=== PATIENT | male | born 1925 | race Caucasian/White ===

== ENCOUNTER 2016-08-18 14:38 | Emergency (ER) | payer MEDICARE, OTHER ==
--- NOTE | 2016-08-18 14:51 | ER Document Report ---
ED Medical Screen (RME) - General Stated Complaint: STITCH REMOVAL Mode of Arrival: Ambulatory Information source: Patient Notes: Patient here for suture removal. Patient states that he was told that they would fall out but he states that they're still present. I have greeted and performed a rapid initial assessment of this patient. A comprehensive ED assessment and evaluation of the patient, analysis of test results and completion of the medical decision making process will be conducted by additional ED providers. TRAVEL OUTSIDE OF THE [place] IN LAST 30 DAYS: No - Related Data Allergies/Adverse Reactions: No Known Allergies Allergy (Verified 08/08/16 14:54) Past Medical History - Past Medical History Cardiac Medical History: Reports: Hx Coronary Artery Disease - HIGH CHOL, Hx Hypertension Denies: Hx Heart Attack Pulmonary Medical History: Denies: Hx Asthma, Hx Bronchitis, Hx COPD, Hx Pneumonia Neurological Medical History: Denies: Hx Cerebrovascular Accident, Hx Seizures Renal/ Medical History: Reports: Hx Kidney Stones Musculoskeltal Medical History: Reports Hx Arthritis - HIP/KNEE PAIN - Immunizations Hx Diphtheria, Pertussis, Tetanus Vaccination: Yes Physical Exam - Vital signs Vitals: Temp Pulse Resp BP Pulse Ox 97.4 F 92 18 173/78 H 97 08/18/16 14:44 08/18/16 14:44 08/18/16 14:44 08/18/16 14:44 08/18/16 14:44 - Skin Notes: Sutures to left brow Course - Vital Signs Vital signs: Temp Pulse Resp BP Pulse Ox 97.4 F 92 18 173/78 H 97 08/18/16 14:44 08/18/16 14:44 08/18/16 14:44 08/18/16 14:44 08/18/16 14:44
--- NOTE | 2016-08-18 16:26 | ER Document Report ---
ED Suture/Wound Recheck - General Chief Complaint: Neck and Upper Back Pain Stated Complaint: STITCH REMOVAL Time seen by provider: 16:21 Mode of Arrival: Ambulatory Notes: 89-year-old male presents to ED for suture removal above his left eye. Patient states he was told they were followed on her own but it is been more than 5 days and there are still in. TRAVEL OUTSIDE OF THE [place] IN LAST 30 DAYS: No - HPI Previous ED treatment: Laceration repair Quality of pain: No pain Severity: None Pain Level: Denies Symptoms since procedure: No complaints Exacerbated by: Denies Relieved by: Denies - Related Data Allergies/Adverse Reactions: No Known Allergies Allergy (Verified 08/18/16 14:53) Past Medical History - General Information source: Patient - Social History Smoking Status: Never Smoker Chew tobacco use (# tins/day): No Frequency of alcohol use: None Drug Abuse: None Lives with: Family Family History: None. denies: Arthritis, CAD, COPD, CVA, DM, Hyperlipidemia, Hypertension, Malignancy, Thyroid Disfunction Patient has suicidal ideation: No Patient has homicidal ideation: No - Past Medical History Cardiac Medical History: Reports: Hx Coronary Artery Disease, Hx Hypercholesterolemia, Hx Hypertension Pulmonary Medical History: Reports: None EENT Medical History: Reports: None Neurological Medical History: Reports: None Endocrine Medical History: Reports: None Renal/ Medical History: Reports: Hx Kidney Stones Malignancy Medical History: Reports None GI Medical History: Reports: None Musculoskeltal Medical History: Reports Hx Arthritis - HIP/KNEE PAIN all over Skin Medical History: Reports None Psychiatric Medical History: Reports: None Traumatic Medical History: Reports: None Infectious Medical History: Reports: None Past Surgical History: Reports: Hx Cholecystectomy, Other - eye right - Immunizations Hx Diphtheria, Pertussis, Tetanus Vaccination: Yes Review of Systems - Review of Systems Constitutional: No symptoms reported EENT: No symptoms reported Cardiovascular: No symptoms reported Respiratory: No symptoms reported Gastrointestinal: No symptoms reported Genitourinary: No symptoms reported Male Genitourinary: No symptoms reported Musculoskeletal: No symptoms reported Skin: Other - Ecchymosis to the left eye sutures above the left eye Hematologic/Lymphatic: No symptoms reported Neurological/Psychological: No symptoms reported -: Yes All other systems reviewed and negative Physical Exam - Vital signs Vitals: Temp Pulse Resp BP Pulse Ox 97.4 F 92 18 173/78 H 97 08/18/16 14:44 08/18/16 14:44 08/18/16 14:44 08/18/16 14:44 08/18/16 14:44 Interpretation: Normal - General General appearance: Appears well, Alert - HEENT Head: Ecchymosis - Around left eye, Other - Sutures intact above left eye laceration well approximated healing well Eyes: Normal Pupils: PERRL Ears: Normal External canal: Normal Tympanic membrane: Normal Sinus: Normal Nasal: Normal Mouth/Lips: Normal Mucous membranes: Normal Pharynx: Normal Neck: Normal - Respiratory Respiratory status: No respiratory distress Chest status: Nontender Breath sounds: Normal Chest palpation: Normal - Cardiovascular Rhythm: Regular Heart sounds: Normal auscultation Murmur: No - Abdominal Inspection: Normal Distension: No distension Bowel sounds: Normal Tenderness: Nontender Organomegaly: No organomegaly - Back Back: Normal, Nontender - Extremities General upper extremity: Normal inspection, Nontender, Normal color, Normal ROM , Normal temperature General lower extremity: Normal inspection, Nontender, Normal color, Normal ROM , Normal temperature, Normal weight bearing. No: Jayleen's sign - Neurological Neuro grossly intact: Yes Cognition: Normal Orientation: AAOx4 [place] Coma Scale Eye Opening: Spontaneous [place] Coma Scale Verbal: Oriented Geo Coma Scale Motor: Obeys Commands Geo Coma Scale Total: 15 Speech: Normal Motor strength normal: LUE, RUE, LLE, RLE Sensory: Normal - Psychological Associated symptoms: Normal affect, Normal mood - Skin Skin Temperature: Warm Skin Moisture: Dry Skin Color: Normal Course - Re-evaluation Re-evalutation: 08/18/16 16:30 Sutures removed above left eye patient tolerated well will discharge home to follow-up with his primary doctor. - Vital Signs Vital signs: Temp Pulse Resp BP Pulse Ox 97.7 F 89 16 145/85 H 96 08/18/16 16:35 08/18/16 16:35 08/18/16 16:35 08/18/16 16:35 08/18/16 16:35 Discharge - Discharge Clinical Impression: Visit for suture removal Condition: Stable Disposition: HOME, SELF-CARE Instructions: Suture Removal Additional Instructions: SOAP CLEANSING: Gently wash the wound daily using a mild soap (like Ivory, Phisoderm, Neutrogena). Use warm water, rubbing gently until all debris, ooze, and crusting have been washed from the wound. Allow to dry briefly (about 10 minutes) after cleaning. Repeat this cleansing at least three times a day for the first two days and then once or twice a day. ANTIBIOTIC OINTMENT PROTECTION: Your wounds are such that dressing them is not practical or optional. After cleansing, you should apply a thin coating of antibiotic ointment ( Bacitracin, not Neosporin) to the wounds at least three times daily. This lessens infection risk, and may decrease the amount of scarring. Use a q-tip or dull butter knife, not your finger, to apply this ointment. Any debris or ooze which builds up in the ointment should be gently rubbed off with a sterile gauze pad. Harder crusting may need to be gently scrubbed off with a clean wash cloth with soap and warm water, perhaps applying a warm, wet wash cloth to the wound for ten minutes first. Development of redness, severe itching, or blistering may mean allergy to the ointment. See the doctor. FOLLOW-UP CARE: If you have been referred to a physician for follow-up care, call the physician s office for an appointment as you were instructed or within the next two days. If you experience worsening or a significant change in your symptoms, notify the physician immediately or return to the Emergency Department at any time for re-evaluation. Forms: Elevated Blood Pressure Referrals: GAMAL BRYAN MD [Primary Care Provider] - Follow up as needed
[2016-08-18 16:41] VITALS: BP 145/85
== END 2016-08-18 16:38 | disposition home or self-care (01) ==
LOC: ER 14:38
DX: S01.112D Laceration without foreign body of left eyelid and periocular area, subsequent encounter (principal); V49.60XD Unspecified car occupant injured in collision with unspecified motor vehicles in traffic accident, subsequent encounter; I25.10 Atherosclerotic heart disease of native coronary artery without angina pectoris; I10 Essential (primary) hypertension
CPT/HCPCS: 99281

== ENCOUNTER 2016-09-02 08:57 | Inpatient (IN) | payer MEDICARE, OTHER ==
[2016-09-02] MEDS ORDERED: NORMAL SALINE 500 ML IV ONE (09:09)
[2016-09-02] MEDS ORDERED: ONDANSETRON HCL INJ/PF 4 MG/2 ML SDV IV ONE (09:21)
[2016-09-02] MEDS ORDERED: NORMAL SALINE 1000 ML 1,000 ML IV ONE (09:21)
[2016-09-02 09:47] LABS: ABSOLUTE EOSINOPHILS # (AUTO) 0.1 10^3/uL (0.0-0.6); ABSOLUTE LYMPHOCYTES (AUTO) 2.4 10^3/uL (0.5-4.7); ABSOLUTE MONOCYTES (AUTO) 0.7 10^3/uL (0.1-1.4); ABSOLUTE NEUT (AUTO) 5.1 10^3/uL (1.7-8.2); BASOPHILS % (AUTO) 0.2 % (0-2); EOSINOPHILS % (AUTO) 1.3 % (0-6); HEMATOCRIT 41.7 % (37.9-51.0); HEMOGLOBIN 14.1 g/dL (13.5-17.0); HGB HCT DIFFERENCE 0.6; LYMPHOCYTES % (AUTO) 28.8 % (13-45); MEAN CORPUSCULAR HGB CONC 33.8 g/dL (32.0-36.0); MEAN CORPUSCULAR VOLUME 92 fl (80-97); MONOCYTES % (AUTO) 8.9 % (3-13); RED BLOOD COUNT 4.55 10^6/uL (4.35-5.55); RED CELL DISTRIBUTION WIDTH 14.6 % (11.5-14.0); SEGMENTED NEUTROPHILS % (AUTO) 60.8 % (42-78); WHITE BLOOD COUNT 8.3 10^3/uL (4.0-10.5)
[2016-09-02 09:56] LABS: PROTHROMBIN TIME 13.5 SEC (11.4-15.4)
[2016-09-02 09:57] LABS: PARTIAL THROMBOPLASTIN TIME 26.9 SEC (23.5-35.8)
[2016-09-02 10:03] LABS: VENOUS BLOOD BASE EXCESS -1.3 mmol/L; VENOUS BLOOD PCO2 47.5 mmHg (35-63); VENOUS BLOOD PH 7.34 (7.30-7.42)
[2016-09-02 10:04] LABS: ALANINE AMINOTRANSFERASE 41 U/L (21-72); ALBUMIN 3.9 g/dL (3.5-5.0); ALCOHOL < 10 mg/dL (NONE DETECTED); ALKALINE PHOSPHATASE 83 U/L (38-126); ANION GAP 14 (5-19); ASPARTATE AMINO TRANSFERASE 30 U/L (17-59); BILIRUBIN,DIRECT 0.2 mg/dL (0.0-0.4); BILIRUBIN,TOTAL 0.7 mg/dL (0.2-1.3); BLOOD UREA NITROGEN 16 mg/dL (7-20); CALCIUM 9.2 mg/dL (8.4-10.2); CARBON DIOXIDE 21 mmol/L (22-30); CHLORIDE 99 mmol/L (98-107); CREATININE RESULT 0.95 mg/dL (0.52-1.25); GLUCOSE 167 mg/dL (75-110); LIPASE 113.1 U/L (23-300); POTASSIUM 3.9 mmol/L (3.6-5.0); TOTAL PROTEIN 6.7 g/dL (6.3-8.2)
[2016-09-02] MEDS ORDERED: ACETYLCYSTEINE INJ 6000 MG/30 ML IV ONE ×2 (10:37→17:30)
[2016-09-02 11:04] LABS: APPEARANCE,URINE CLEAR; BILIRUBIN,URINE NEGATIVE (NEGATIVE); GLUCOSE, URINE NEGATIVE (NEGATIVE); KETONES,URINE NEGATIVE (NEGATIVE); LEUKOCYTE ESTERASE,URINE NEGATIVE (NEGATIVE); NITRITE,URINE NEGATIVE (NEGATIVE); PROTEIN,URINE NEGATIVE (NEGATIVE); URINE SPECIFIC GRAVITY 1.013; UROBILINOGEN,URINE NEGATIVE mg/dL (<2.0)
[2016-09-02 11:29] LABS: URINE BARBITURATES SCREEN NEGATIVE; URINE METHADONE SCREEN NEGATIVE; URINE OPIATES LOW UNCONFIRMED POSITIVE; URINE PHENCYCLIDINE SCREEN NEGATIVE
--- NOTE | 2016-09-02 13:10 | ER Document Report ---
ED General - General Chief Complaint: Possible Overdose Stated Complaint: POSSIBLE OVERDOSE TRAVEL OUTSIDE OF THE [place] IN LAST 30 DAYS: No - HPI Patient complains to provider of: accidental overdose Notes: Patient's coming in for evaluation of accident overdose. Patient states he has been taking Percocet since 4:00 this morning states she's been taking approximately one tablet every 20 minutes since 4:00 due to pain. Patient states he is prescribed Percocet for his acid reflux. Upon arrival patient is alert oriented no respiratory distress at this time. Patient is complaining of nausea and vomiting. Patient denies any diarrhea denies fevers chills - Related Data Allergies/Adverse Reactions: No Known Allergies Allergy (Verified 08/18/16 14:53) Past Medical History - Social History Smoking Status: Unknown if Ever Smoked Family History: None. denies: Arthritis, CAD, COPD, CVA, DM, Hyperlipidemia, Hypertension, Malignancy, Thyroid Disfunction - Past Medical History Cardiac Medical History: Reports: Hx Coronary Artery Disease, Hx Hypercholesterolemia, Hx Hypertension Denies: Hx Heart Attack Pulmonary Medical History: Denies: Hx Asthma, Hx Bronchitis, Hx COPD, Hx Pneumonia Neurological Medical History: Denies: Hx Cerebrovascular Accident, Hx Seizures Renal/ Medical History: Reports: Hx Kidney Stones. Denies: Hx Peritoneal Dialysis Musculoskeltal Medical History: Reports Hx Arthritis - HIP/KNEE PAIN all over Past Surgical History: Reports: Hx Cholecystectomy, Other - eye right - Immunizations Hx Diphtheria, Pertussis, Tetanus Vaccination: Yes Review of Systems - Review of Systems Constitutional: Other - Overdose EENT: No symptoms reported Cardiovascular: No symptoms reported Respiratory: No symptoms reported Gastrointestinal: No symptoms reported Genitourinary: No symptoms reported Male Genitourinary: No symptoms reported Musculoskeletal: No symptoms reported Skin: No symptoms reported Hematologic/Lymphatic: No symptoms reported Neurological/Psychological: No symptoms reported -: Yes All other systems reviewed and negative Physical Exam - Vital signs Vitals: Resp Pulse Ox 17 97 09/02/16 09:27 09/02/16 09:27 Interpretation: Normal - General General appearance: Appears well, Alert - HEENT Head: Normocephalic, Atraumatic Eyes: Normal Pupils: No: PERRL - Right pupil postsurgical left pupil is constricted approximately to 3 mm is reactive. - Respiratory Respiratory status: No respiratory distress Chest status: Nontender Breath sounds: Normal Chest palpation: Normal - Cardiovascular Rhythm: Regular Heart sounds: Normal auscultation Murmur: No - Abdominal Inspection: Normal Distension: No distension Bowel sounds: Normal Tenderness: Nontender Organomegaly: No organomegaly - Back Back: Normal, Nontender - Extremities General upper extremity: Normal inspection, Nontender, Normal color, Normal ROM , Normal temperature General lower extremity: Normal inspection, Nontender, Normal color, Normal ROM , Normal temperature, Normal weight bearing. No: Jayleen's sign - Neurological Neuro grossly intact: Yes Cognition: Normal Orientation: AAOx4 [place] Coma Scale Eye Opening: Spontaneous Geo Coma Scale Verbal: Oriented [place] Coma Scale Motor: Obeys Commands [place] Coma Scale Total: 15 Speech: Normal Motor strength normal: LUE, RUE, LLE, RLE Sensory: Normal - Psychological Associated symptoms: Normal affect, Normal mood - Skin Skin Temperature: Warm Skin Moisture: Dry Skin Color: Normal Course - Re-evaluation Re-evalutation: 09/02/16 15:08 Due to patient taking opiates patient was placed on the general service technician. Patient's seen at the level did come back elevated we did discuss with close control recommended Mucomyst be given. Initially recommended oral however patient still stating that he was nauseous fill of the IV route will be more suitable. Initially dictates the PCP at approximately 1150. There is no return phone call after 1 hour therefore discussed with the hydraulic rock drill operator states that now the PCPs covered by the hospitalist. Patient's case was discussed with hospitalist will admit for further evaluation - Vital Signs Vital signs: Temp Pulse Resp BP Pulse Ox 23 H 181/85 H 97 09/02/16 14:01 09/02/16 14:01 09/02/16 14:01 - Laboratory Result Diagrams: 09/02/16 09:31 09/02/16 09:31 Laboratory results interpreted by me: 09/02/16 09/02/16 09/02/16 09:31 09:31 09:31 RDW 14.6 H Sodium 134.0 L Carbon Dioxide 21 L Glucose 167 H Phosphorus 4.8 H Creatine Kinase 37 L Salicylates < 1.0 L Acetaminophen 131 H* Discharge - Discharge Clinical Impression: Opiate overdose Qualifiers: Encounter type: initial encounter Injury intent: accidental or unintentional Qualified Code(s): T40.601A - Poisoning by unspecified narcotics, accidental ( unintentional), initial encounter Tylenol overdose Qualifiers: Encounter type: initial encounter Injury intent: accidental or unintentional Qualified Code(s): T39.1X1A - Poisoning by 4-Aminophenol derivatives, accidental (unintentional), initial encounter Admitting Provider: Vikas Scott
[2016-09-02] MEDS ORDERED: MAGNESIUM HYDROXIDE SUSP 30 ML UDCUP PO PRN (14:01)
[2016-09-02] MEDS ORDERED: IPRATROPIUM/ALBUTEROL 0.5-2.5 MG/3 ML AMPUL NEB PRN (14:01)
[2016-09-02] MEDS ORDERED: ONDANSETRON HCL INJ/PF 4 MG/2 ML SDV IV PRN (14:10)
[2016-09-02] MEDS ORDERED: OXYCODONE HCL IR 5 MG TABLET PO PRN (14:41)
[2016-09-02] MEDS ORDERED: MORPHINE SULFATE 10 MG/ML INJ IV PRN (14:42)
--- NOTE | 2016-09-02 14:48 | PDOC H&P ---
History of Present Illness Admission Date/PCP: 09/02/16 13:45 IGOR DAUGHERTY MD Patient complains of: abd pain, BARROSO, racing thoughts History of Present Illness: MAYA LUCAS is a 89 year old male who was presented to me by the ER physician as an acute Tylenol toxicity but was rather unclear as to why the patient presented to the hospital to begin with. Patient himself tells me that he has been feeling well for the last several weeks. He describes this as anorexia due to nausea and vomiting after eating with regurgitation of undigested food. He describes epigastric gnawing pain that is constant, worse with eating and vomiting improved with Percocets his primary care provider prescribed. The pain is nonradiating and has no other associated symptoms than those mentioned above. He denies hematemesis, melena or hematochezia. He denies fevers or chills. He states he suffers from "severe GERD" diagnosed by Dr. Mascorro by endoscopy in June of this year, unfortunately the procedure was performed in his office and I do not have access to that report. He reports using Percocet 5/325 mg usually 3 tablets per day but over the course of the last couple of days he's increased his dose and this morning he started taking them every 20 minutes at about 0400 and for the next several hours consuming somewhere between 15 and 20 pills prior to his arrival at 0900 in the ED. He also complains of a rather odd constellation of symptoms including a dull aching headache that waxes and wanes, is worse with the nausea and vomiting, may or may not preceded he's not sure, is unrelieved by anything other than passing of time lasting anywhere from minutes to hours, and associated with blurry vision, and "blurry thinking". He reports severe depression over the last several weeks with racing thoughts" odd voices" in his head at night. He describes these voices as random, nonsensical words that we will suddenly pop into his head one after another in no particular sequence in no particular pattern but he finds the process disturbing and prevents him from sleeping. he also has unusual dreams that often awaken him from sleep leaving him with no more than a couple hours of sleep per night and almost no sleep over the last 3 nights. He reports using Tylenol PM and melatonin to assist with sleep with no effect. He also describes a "buzzing" in his head but interestingly denies tinnitus. He becomes very emotional describing these events, clearly frightened , very concerned "something serious is going on". Evaluation in the emergency department shows him to be Tylenol toxic with a level of 131, unfortunately impossible to say that this is only an acute intoxication, more like acute on chronic given his Tylenol use noted above. Nevertheless, poison control was consulted and recommended treatment, due to his nausea ED physician elected for IV Mucomyst and has asked us to admit for further treatment and evaluation. Past Medical History Cardiac Medical History: Reports: Coronary Artery Disease, Hyperlipidema, Hypertension Denies: Myocardial Infarction Pulmonary Medical History: Denies: Asthma, Bronchitis, Chronic Obstructive Pulmonary Disease (COPD), Pneumonia Neurological Medical History: Denies: Seizures Endocrine Medical History: Reports: Hypothyroidism GI Medical History: Reports: Gastroesophageal Reflux Disease Musculoskeltal Medical History: Reports: Arthritis - HIP/KNEE PAIN all over Hematology: Denies: Anemia Past Surgical History Past Surgical History: Reports: Cholecystectomy, Other - eye right Social History Smoking Status: Unknown if Ever Smoked Frequency of Alcohol Use: None Hx Recreational Drug Use: No Hx Prescription Drug Abuse: No - Advance Directive Resuscitation Status: Full Code Family History Family History: None. denies: Arthritis, CAD, COPD, CVA, DM, Hyperlipidemia, Hypertension, Malignancy, Thyroid Disfunction Parental Family History Reviewed: Yes Children Family History Reviewed: Yes Sibling(s) Family History Reviewed.: Yes Medication/Allergy Allergies/Adverse Reactions: No Known Allergies Allergy (Verified 08/18/16 14:53) Review of Systems Constitutional: PRESENT: headache(s). ABSENT: chills, fever(s), night sweats, weight gain, weight loss Eyes: PRESENT: visual disturbances Ears: PRESENT: hearing changes Cardiovascular: ABSENT: chest pain, dyspnea on exertion, edema, orthropnea, palpitations Respiratory: ABSENT: cough, hemoptysis Gastrointestinal: PRESENT: abdominal pain, heartburn, nausea, vomiting. ABSENT : constipation, diarrhea, hematemesis, hematochezia, melena Genitourinary: ABSENT: dysuria, hematuria Musculoskeletal: ABSENT: joint swelling Integumentary: ABSENT: rash, wounds Neurological: PRESENT: as per HPI, other - See history of present illness. ABSENT: abnormal gait, abnormal speech, confusion, dizziness, focal weakness, syncope Psychiatric: ABSENT: anxiety, depression, suicidal ideation - Adamantly denies any intent to harm self Endocrine: ABSENT: cold intolerance, heat intolerance, polydipsia, polyuria Hematologic/Lymphatic: ABSENT: easy bleeding, easy bruising Physical Exam Vital Signs: Temp Pulse Resp BP Pulse Ox 23 H 181/85 H 97 09/02/16 14:01 09/02/16 14:01 09/02/16 14:01 PHYSICAL EXAM GENERAL: NAD; well developed, well nourished; no obese; alert and oriented to person, place, time, situation HEENT: normocephalic, atraumatic; EOMI, PERRLA, no conjunctival injection, no scleral icterus; oral mucosa moist, neck supple, no LAD, normal ROM RESPIRATORY: no accessory muscle use, no increased WOB, good air entry bilaterally; no wheezes, rales, rhonchi; no inspiratory crackles CARDIO: no JVD; RRR; "galloping" heart sounds, probably S4, soft murmur; no tachycardia VASCULAR: no carotid bruit; no abdominal bruit; no pallor; 2+ radial, DP pulse ; normal capillary refill GI: soft; nondistended; normal bowel sounds; no hepato spleno megaly; no rebound, rigidity, guarding; tender to palpation over the epigastrium NEURO: normal patella reflexes; normal motor function; no gait abnls; no dysarthria; no nystagmus; tongue protrudes midline MSK: 5/5 strength; normal ROM hips; ambulatory without assistance; no tenderness EXTREMITIES: no calf tender; no palpable cords in calf; no clubbing, cyanosis , pedal edema PSYCH: Flat affect, depressed mood SKIN: warm; dry; no petechiae; no telengectasias; no jaundice; Results Laboratory Results: Labs reviewed, see history of present illness, CBC unremarkable, coags normal, chemistries unremarkable although his carbon dioxide is mildly low at 21 sodium is low at 134 renal function is good, glucose slightly elevated at 167, lactic acid 1.1, LFTs completely normal, lipase normal; urinalysis shows no abnormalities with a pH of 6.0; salicylate level and serum alcohol level are undetectable, he is opiate positive which is unsurprising given his prescription history Impressions: Abdomen/Pelvis CT 09/02/16 09:21 IMPRESSION: No CT findings to explain history of acute abdominal pain. Multiple bilateral renal cortical cysts. Post cholecystectomy. Left lower pole intrarenal nonobstructive stone. Status: Imported from PACS Assessment & Plan - Diagnosis (1) Acetaminophen toxicity Qualifiers: Encounter type: initial encounter Injury intent: accidental or unintentional Qualified Code(s): T39.1X1A - Poisoning by 4-Aminophenol derivatives, accidental (unintentional), initial encounter Is this a current diagnosis for this admission?: YesPlan: Patient be admitted to [facility] for continued Mucomyst treatment as recommended by poison control. Will attempt the oral regimen for 72 hours at 70 mg/kg every 4 hours. Recommendations are to repeat Tylenol level in 4 and 20 hours after the initial dose, and prior to discontinuation of treatment to confirm undetectable levels; also recommended to follow LFTs at 8 and 20 hours at which time consideration for discontinuation of treatment can occur assuming Tylenol levels undetectable and ALT within normal limits. Ondansetron is the recommended agent for nausea associated with oral acetylcysteine. (2) Epigastric pain Is this a current diagnosis for this admission?: YesPlan: Unclear etiology, but has a long-standing history of gastroesophageal reflux disease raising the possibility of erosive gastritis and esophagitis and perhaps even peptic ulcer disease. Will treat empirically with PPI therapy twice a day and follow-up CT scan in the morning with an upper GI series looking for these items. Unfortunately, we do not have gastroenterology consultation available for the next several days, therefore if his condition were to deteriorate he would require transfer to a tertiary care center for higher level of care. Changes pain control to analgesics only obviously eliminating the Tylenol and additional NSAIDs in an effort to avoid hepatotoxicity. (3) Gastroesophageal reflux disease Qualifiers: Esophagitis presence: with esophagitis Qualified Code(s): K21.0 - Gastro-esophageal reflux disease with esophagitis Is this a current diagnosis for this admission?: YesPlan: Worse and likely with erosive esophagitis, treat as above. I suspect this is why he was escalating his analgesic use at home. (5) Hyperlipidemia Qualifiers: Hyperlipidemia type: unspecified Qualified Code(s): E78.5 - Hyperlipidemia, unspecified Is this a current diagnosis for this admission?: YesPlan: Home regimen is unclear but obviously we'll be holding any fibrates or statin therapy until resolution of the Tylenol toxicity. (6) Depression Qualifiers: Depression Type: unspecified Qualified Code(s): F32.9 - Major depressive disorder, single episode, unspecified Is this a current diagnosis for this admission?: YesPlan: Agree with mental health evaluation while here, we'll need to establish the degree to which his liver is been injured by the acetaminophen before initiating antidepressant therapy as many of these medications are metabolized through the liver (7) Headache Qualifiers: Headache type: unspecified Intractability: intractable Is this a current diagnosis for this admission?: YesPlan: With associated neurologic effects manifested as intermittent paresthesias, racing thoughts and possible auditory and visual hallucinations. Will check MRI of the brain looking for intracranial abnormality. - Time Time Spent: Greater than 70 Minutes Medications reviewed and adjusted accordingly: Yes Anticipated discharge: Home Within: within 72 hours - Inpatient Certification Based on my medical assessment, after consideration of the patient's comorbidities, presenting symptoms, or acuity I expect that the services needed warrant INPATIENT care.: Yes I certify that my determination is in accordance with my understanding of Medicare's requirements for reasonable and necessary INPATIENT services [42 CFR 412.3e].: Yes Medical Necessity: Significant Comorbidiites Make Outpatient Treatment Too Risky , Risk of Complication if Not Cared For in Hospital
[2016-09-02 15:04] LABS: MAGNESIUM 1.8 mg/dL (1.6-2.3); PHOSPHORUS 4.8 mg/dL (2.5-4.5)
[2016-09-02 15:13] LABS: CREATINE KINASE MB 1.22 ng/mL (<4.55); TROPONIN I 0.018 ng/mL
[2016-09-02] MEDS ORDERED: METOPROLOL TARTRATE PF/INJ 5 MG/5 ML SDV IV PRN (16:28)
[2016-09-02] MEDS ORDERED: NALOXONE HCL INJ/PF 0.4 MG/1 ML SDV ONE (16:40)
[2016-09-02] MEDS ORDERED: NALOXONE HCL INJ/PF 0.4 MG/1 ML SDV IV ONE ×2 (17:00→18:48)
[2016-09-02] MEDS ORDERED: ACETYLCYSTEINE 20% SOLN 800 MG/4 ML VIAL.NEB PO ONE (17:00)
[2016-09-02] MEDS ORDERED: LISINOPRIL 10 MG TABLET PO ONE (17:00)
[2016-09-02] MEDS ORDERED: ACETYLCYSTEINE 20% SOLN 6000 MG/30 ML VIAL PO ONE (17:00)
[2016-09-02] MEDS ORDERED: NALOXONE HCL INJ 2 MG/2 ML DISP.SYRIN ONE ×2 (17:32→18:21)
[2016-09-02 17:35] LABS: ARTERIAL BLOOD BASE EXCESS -3.8 mmol/L; ARTERIAL BLOOD O2 SATURATION 95.9 % (94-98)
[2016-09-02] MEDS ORDERED: NORMAL SALINE 500 ML with NALOXONE HCL 2 MG IV PRN ×2 (17:41)
[2016-09-02] MEDS ORDERED: HYDRALAZINE HCL INJ/PF 20 MG/1 ML SDV ONE (17:45)
[2016-09-02 17:51] LABS: ALANINE AMINOTRANSFERASE 38 U/L (21-72); ALBUMIN 4.1 g/dL (3.5-5.0); ALKALINE PHOSPHATASE 69 U/L (38-126); ANION GAP 17 (5-19); ASPARTATE AMINO TRANSFERASE 33 U/L (17-59); BILIRUBIN,DIRECT 0.4 mg/dL (0.0-0.4); BLOOD UREA NITROGEN 14 mg/dL (7-20); CALCIUM 9.1 mg/dL (8.4-10.2); CARBON DIOXIDE 20 mmol/L (22-30); CHLORIDE 99 mmol/L (98-107); CREATINE KINASE 45 U/L (55-170); CREATININE RESULT 0.71 mg/dL (0.52-1.25); GLUCOSE 124 mg/dL (75-110); POTASSIUM 3.9 mmol/L (3.6-5.0); SODIUM 135.6 mmol/L (137-145); TOTAL PROTEIN 7.1 g/dL (6.3-8.2)
[2016-09-02] MEDS ORDERED: NITROGLYCERIN/D5W 250 ML IV PRN (17:51)
[2016-09-02] MEDS ORDERED: NALOXONE HCL INJ 2 MG/2 ML DISP.SYRIN IV ONE (18:00)
[2016-09-02] MEDS ORDERED: HYDRALAZINE HCL INJ/PF 20 MG/1 ML SDV IV ONE (18:00)
[2016-09-02] MEDS ORDERED: ASPIRIN 300 MG SUPP, RECTAL PR ONE (18:30)
[2016-09-02 18:44] LABS: ABSOLUTE BASOPHILS # (AUTO) 0.1 10^3/uL (0.0-0.2); ABSOLUTE LYMPHOCYTES (AUTO) 2.2 10^3/uL (0.5-4.7); ABSOLUTE MONOCYTES (AUTO) 1.2 10^3/uL (0.1-1.4); BASOPHILS % (AUTO) 0.5 % (0-2); EOSINOPHILS % (AUTO) 0.1 % (0-6); HEMATOCRIT 43.7 % (37.9-51.0); HEMOGLOBIN 14.8 g/dL (13.5-17.0); HGB HCT DIFFERENCE 0.7; LYMPHOCYTES % (AUTO) 17.8 % (13-45); MEAN CORPUSCULAR HEMOGLOBIN 30.4 pg (27.0-33.4); MEAN CORPUSCULAR HGB CONC 33.7 g/dL (32.0-36.0); MEAN CORPUSCULAR VOLUME 90 fl (80-97); MONOCYTES % (AUTO) 9.8 % (3-13); RED BLOOD COUNT 4.85 10^6/uL (4.35-5.55); RED CELL DISTRIBUTION WIDTH 14.2 % (11.5-14.0); SEGMENTED NEUTROPHILS % (AUTO) 71.8 % (42-78); WHITE BLOOD COUNT 12.5 10^3/uL (4.0-10.5)
--- NOTE | 2016-09-02 19:35 | PDOC CONSULTATION ---
Consultation Consult Date: 09/02/16 Attending physician:: DIVINE SAENZ Consult reason:: Abnormal EKG History of Present Illness Admission Date/PCP: 09/02/16 14:01 IGOR DAUGHERTY MD Patient complains of: Came with overdose History of Present Illness: MAYA LUCAS is a 89 year old male, who was initially admitted through the emergency department with Tylenol toxicity. Patient was noted to have EKG changes indicative of ischemia. Patient currently noted to be somewhat obtunded and not following commands. Therefore history cannot be confirmed. Patient chart was reviewed. Hospitalist's notes were reviewed. ER physician's notes were reviewed. Patient EKG is reviewed and lab work reviewed. Patient is noted to have Tylenol toxicity and also may have opiod overdose from taking Percocet. Patient past medical history was reviewed. No family members present to supplement history. Past Medical History Cardiac Medical History: Reports: Coronary Artery Disease, Hyperlipidema, Hypertension Denies: Myocardial Infarction Pulmonary Medical History: Denies: Asthma, Bronchitis, Chronic Obstructive Pulmonary Disease (COPD), Pneumonia Neurological Medical History: Denies: Seizures Endocrine Medical History: Reports: Hypothyroidism GI Medical History: Reports: Gastroesophageal Reflux Disease Musculoskeltal Medical History: Reports: Arthritis - HIP/KNEE PAIN all over Hematology: Denies: Anemia Past Surgical History Past Surgical History: Reports: Cholecystectomy, Other - eye right, recent EGD Social History Information Source: [facility] Records Smoking Status: Unknown if Ever Smoked Frequency of Alcohol Use: None Hx Recreational Drug Use: No Hx Prescription Drug Abuse: No - Advance Directive Resuscitation Status: Full Code Surrogate healthcare decision maker:: Patient unable to identify Family History Family History: None. denies: Arthritis, CAD, COPD, CVA, DM, Hyperlipidemia, Hypertension, Malignancy, Thyroid Disfunction Parental Family History Reviewed: No Children Family History Reviewed: No Sibling(s) Family History Reviewed.: No - Unable to confirm as patient is obtunded. Chart was reviewed Medication/Allergy Home Medications: Allopurinol [Allopurinol] 300 mg PO DAILY 09/02/16 Bromfenac Sodium [Prolensa] 1 drop OD DAILY 09/02/16 Cholecalciferol (Vitamin D3) [Vitamin D3] 50,000 unit PO [id number] 09/02/16 Dexlansoprazole [Dexilant 60 mg Capsule] 60 mg PO DAILY 09/02/16 Docusate Sodium [Doc-Q-Lace] 100 mg PO Q8HP PRN 09/02/16 Esomeprazole Magnesium [Nexium] 40 mg PO DAILY 09/02/16 Levothyroxine Sodium [Synthroid] 125 mcg PO QAM 09/02/16 Ondansetron HCl [Ondansetron HCl] 1 tab PO Q6HP PRN 09/02/16 Oxycodone HCl/Acetaminophen [Oxycodone-Acetaminophen 5-325] 1 tab PO Q12HP PRN 09/02/16 Prednisolone Acetate [Pred Forte] 1 drop OD QID 09/02/16 Ranitidine HCl [Zantac 150 mg Tablet] 150 mg PO DAILY 09/02/16 Sodium Chloride [Fransisca-128 Oph Soln 5% 15 ml] 1 drop OD TID 09/02/16 Timolol Maleate [Timoptic 0.5% Oph Soln 5 ml] 1 drop OU Q12 09/02/16 Allergies/Adverse Reactions: No Known Allergies Allergy (Verified 08/18/16 14:53) Review of Systems ROS unobtainable: Due to mental status Review of Systems: Unable to obtain as patient is obtunded. Physical Exam Vital Signs: Temp Pulse Resp BP Pulse Ox 97.7 F 28 H 162/67 H 97 09/02/16 15:53 09/02/16 18:11 09/02/16 18:11 09/02/16 18:11 Exam: GENERAL: well-nourished and in no acute distress. Patient is obtunded and not oriented to place time or person. HEAD: Atraumatic, normocephalic. EYES: Pupils equal round and reactive to light, extraocular movements intact, sclera anicteric, conjunctiva are normal. ENT: TMs normal, nares patent, oropharynx clear without exudates. Moist mucous membranes. No oral ulcerations or bleeding gums noted NECK: supple without lymphadenopathy or JVD. Trachea is central. No cervical or axillary lymphadenopathy noted. Carotids are 2+ LUNGS: Breath sounds bibasilar fine crackles at bases. No significant dullness noted. CHEST: Palpation of chest wall shows no significant abnormalities. HEART: [place] [employer] SAL[employer], No PSH, 2/6 LUC aortic area, 1/6 young systolic murmur mitral area, rubs or gallops. ABDOMEN: Soft, abdominal distention is noted, no significant tenderness appreciated, normoactive bowel sounds. No guarding, no rebound. No rigidity noted . No masses appreciated. EXTREMITIES: Pedal pulses are 1-2+, no calf tenderness noted, Trace + pedal edema noted. No clubbing or cyanosis. NEUROLOGICAL: Patient is alert but is not able to participate in neurological exam because of patient's current mental status PSYCH: Patient cannot participate in a neurologic and psych exam because of the patient's current mental status SKIN: No significant ecchymosis, rash, ulcerations or signs of pruritus noted. MUSCULOSKELETAL EXAM: No significant joint swelling noted. Results Laboratory Results: 09/02/16 18:30 09/02/16 17:10 09/02/16 09/02/16 09/02/16 17:10 17:15 18:30 WBC 12.5 H RBC 4.85 Hgb 14.8 Hct 43.7 MCV 90 MCH 30.4 MCHC 33.7 RDW 14.2 H Plt Count 206 Seg Neutrophils % 71.8 Lymphocytes % 17.8 Monocytes % 9.8 Eosinophils % 0.1 Basophils % 0.5 Absolute Neutrophils 9.0 H Absolute Lymphocytes 2.2 Absolute Monocytes 1.2 Absolute Eosinophils 0.0 Absolute Basophils 0.1 Carbonic Acid 0.88 L HCO3/H2CO3 Ratio 21:1 ABG pH 7.43 ABG pCO2 29.2 L ABG pO2 76.9 L ABG HCO3 19.0 L ABG O2 Saturation 95.9 ABG Base Excess -3.8 FiO2 ROOMAIR Sodium 135.6 L Potassium 3.9 Chloride 99 Carbon Dioxide 20 L Anion Gap 17 BUN 14 Creatinine 0.71 Est GFR ( Amer) > 60 Est GFR (Non-Af Amer) > 60 Glucose 124 H Calcium 9.1 Total Bilirubin 1.0 AST 33 ALT 38 Alkaline Phosphatase 69 Ammonia Total Protein 7.1 Albumin 4.1 09/02/16 18:30 WBC RBC Hgb Hct MCV MCH MCHC RDW Plt Count Seg Neutrophils % Lymphocytes % Monocytes % Eosinophils % Basophils % Absolute Neutrophils Absolute Lymphocytes Absolute Monocytes Absolute Eosinophils Absolute Basophils Carbonic Acid HCO3/H2CO3 Ratio ABG pH ABG pCO2 ABG pO2 ABG HCO3 ABG O2 Saturation ABG Base Excess FiO2 Sodium Potassium Chloride Carbon Dioxide Anion Gap BUN Creatinine Est GFR ( Amer) Est GFR (Non-Af Amer) Glucose Calcium Total Bilirubin AST ALT Alkaline Phosphatase Ammonia < 8.7 L Total Protein Albumin 09/02/16 09/02/16 09/02/16 17:10 17:10 17:10 Creatine Kinase 45 L CK-MB (CK-2) 2.44 Troponin I 0.085 EKG Comments: Multiple 12-lead EKG is reviewed. They show significant ST segment depression in lateral chest leads and some minimal ST elevation in aVR. Impressions: Chest X-Ray 09/02/16 00:00 IMPRESSION: COPD. NO ACUTE RADIOGRAPHIC FINDING IN THE CHEST. Head CT 09/02/16 00:00 IMPRESSION: NO ACUTE INTRACRANIAL PROCESS. NO SIGNIFICANT CHANGE FROM PRIOR STUDY. Abdomen/Pelvis CT 09/02/16 09:21 IMPRESSION: No CT findings to explain history of acute abdominal pain. Multiple bilateral renal cortical cysts. Post cholecystectomy. Left lower pole intrarenal nonobstructive stone. Assessment & Plan - Diagnosis (1) Severe hypertension Is this a current diagnosis for this admission?: Yes (2) Hypertensive encephalopathy Is this a current diagnosis for this admission?: Yes (3) Abnormal electrocardiogram Is this a current diagnosis for this admission?: Yes (4) Acetaminophen toxicity Qualifiers: Encounter type: initial encounter Injury intent: accidental or unintentional Qualified Code(s): T39.1X1A - Poisoning by 4-Aminophenol derivatives, accidental (unintentional), initial encounter Is this a current diagnosis for this admission?: Yes (5) Hyperlipidemia Qualifiers: Hyperlipidemia type: unspecified Qualified Code(s): E78.5 - Hyperlipidemia, unspecified Is this a current diagnosis for this admission?: Yes (6) Opiate overdose Qualifiers: Encounter type: initial encounter Injury intent: accidental or unintentional Qualified Code(s): T40.601A - Poisoning by unspecified narcotics, accidental (unintentional), initial encounter Is this a current diagnosis for this admission?: Yes - Notes Notes: Severe hypertension: Patient may have hypertensive encephalopathy as cause of mental obtundation. Possible stroke, to seem to be picked up by CT, possible brainstem injury etc. at this point agree with control of blood pressure as you were doing. Recommend beta blockers, layla inhibitors etc. for blood pressure reductions. Hypertensive encephalopathy: Please see plans under severe hypertension. Abnormal electrocardiogram: Patient has significant abnormalities of EKG. Could be indicative of global ischemia but our treatment options are admitted in view of mental obtundation which is rather presented acutely. At this point continued close observation and medical management is being recommended. Treat with aspirin, statins, beta blockers. May consider repeating CTs of the brain, MRI etc. CTA of the coronaries would have been useful but that is not available. Acetaminophen toxicity: Agree with current treatment plans. Opiate overdose: Agree with Narcan and other management. Have written orders for IV Lopressor 5 mg every 6 and Vasotec 0.625 mg IV every 6. Ranexa 500 mg by mouth every 12 once able to take by mouth. If repeat CT scan or MRI negative for bleed, consider loading with Plavix. If patient mental status improved significantly, consider transfer to tertiary care for heart catheterization. Patient's overall prognosis is guarded given his current condition. Will continue to follow patient, Dr. Sharp to cover from tomorrow. - Time Time Spent: 50 to 70 Minutes - Discussed with hospitalist. Medications reviewed and adjusted accordingly: Yes
[2016-09-02] MEDS ORDERED: ACETYLCYSTEINE 20% SOLN 6000 MG/30 ML VIAL PO SCH (20:00)
[2016-09-02] MEDS ORDERED: METOPROLOL TARTRATE PF/INJ 5 MG/5 ML SDV IV ONE (20:45)
[2016-09-02] MEDS ORDERED: ACETYLCYSTEINE IV ONE (21:30)
[2016-09-02] MEDS ORDERED: WATER IV ONE (21:30)
[2016-09-02] MEDS ORDERED: DEXTROSE 5% IV ONE (21:30)
[2016-09-02] MEDS: RANOLAZINE 500 MG TAB.SR.12H PO SCH (21:31)
[2016-09-02] MEDS: PANTOPRAZOLE SODIUM 40 MG VIAL IV SCH (21:34)
[2016-09-02] MEDS: PREDNISOLONE ACETATE 1% OPH SUSP 5 ML OD SCH (21:35)
[2016-09-02] MEDS ORDERED: ATORVASTATIN CALCIUM 10 MG TABLET PO SCH (22:00)
[2016-09-02] MEDS ORDERED: ATORVASTATIN CALCIUM 20 MG TABLET PO SCH (22:00)
[2016-09-02] MEDS ORDERED: RANOLAZINE 500 MG TAB.SR.12H PO ONE (22:00)
[2016-09-02] MEDS ORDERED: ATORVASTATIN CALCIUM 20 MG TABLET PO ONE (22:00)
[2016-09-02] MEDS: TIMOLOL MALEATE 0.5% OPH SOLN 5 ML OU SCH (22:06)
--- NOTE | 2016-09-02 22:32 | EKG REPORT ---
SEVERITY:- ABNORMAL ECG - SINUS TACHYCARDIA MULTIPLE ATRIAL PREMATURE COMPLEXES LEFT ANTERIOR FASCICULAR BLOCK ST DEPRESSION, CONSIDER ISCHEMIA, ANT-LAT LDS : Confirmed by: Shivani Sharp MD 02-Sep-2016 22:31:04
--- NOTE | 2016-09-02 22:32 | EKG REPORT ---
SEVERITY:- ABNORMAL ECG - WANDERING PACEMAKER LEFT ANTERIOR FASCICULAR BLOCK ST DEPRESSION, CONSIDER ISCHEMIA, ANT LEADS : Confirmed by: Shivani Sharp MD 02-Sep-2016 22:30:55
[2016-09-03 00:03] LABS: CREATINE KINASE MB 4.01 ng/mL (<4.55)
[2016-09-03 00:08] LABS: TROPONIN I 0.377 ng/mL
[2016-09-03] MEDS: METOPROLOL TARTRATE PF/INJ 5 MG/5 ML SDV IV SCH ×2 (01:02→06:21)
[2016-09-03] MEDS: ENALAPRILAT DIHYDRATE INJ/PF 1.25 MG/1 ML SDV IV SCH ×2 (01:04→06:21)
[2016-09-03 04:58] LABS: ALANINE AMINOTRANSFERASE 36 U/L (21-72); ALBUMIN 3.1 g/dL (3.5-5.0); ALKALINE PHOSPHATASE 55 U/L (38-126); ANION GAP 12 (5-19); ASPARTATE AMINO TRANSFERASE 25 U/L (17-59); BILIRUBIN,DIRECT 0.2 mg/dL (0.0-0.4); BILIRUBIN,TOTAL 0.8 mg/dL (0.2-1.3); BLOOD UREA NITROGEN 12 mg/dL (7-20); CALCIUM 8.7 mg/dL (8.4-10.2); CARBON DIOXIDE 19 mmol/L (22-30); CHLORIDE 100 mmol/L (98-107); CREATINE KINASE 99 U/L (55-170); CREATININE RESULT 0.63 mg/dL (0.52-1.25); GLUCOSE 102 mg/dL (75-110); POTASSIUM 3.6 mmol/L (3.6-5.0); SODIUM 130.5 mmol/L (137-145); TOTAL PROTEIN 5.6 g/dL (6.3-8.2)
--- NOTE | 2016-09-03 06:13 | EKG REPORT ---
SEVERITY:- ABNORMAL ECG - SINUS WITH FIRST DEGREE AV BLOCK MULTIFORM VENTRICULAR PREMATURE COMPLEXES NONSPECIFIC IVCD WITH LAD PROBABLE POSTERIOR INFARCT : Confirmed by: Eros Gage 03-Sep-2016 06:12:58
--- NOTE | 2016-09-03 06:13 | EKG REPORT ---
SEVERITY:- ABNORMAL ECG - SINUS RHYTHM FIRST DEGREE AV BLOCK LEFT ANTERIOR FASCICULAR BLOCK PROBABLE POSTERIOR INFARCT : Confirmed by: Eros Gage 03-Sep-2016 06:12:10
--- NOTE | 2016-09-03 06:15 | EKG REPORT ---
SEVERITY:- ABNORMAL ECG - SINUS RHYTHM WITH 1ST DEGREE AV BLOCK AND APCS SINUS RHYTHM LEFT AXIS DEVIATION ST DEPRESSION, CONSIDER ISCHEMIA, ANT LEADS : Confirmed by: Eros Gage 03-Sep-2016 06:15:01
--- NOTE | 2016-09-03 06:17 | EKG REPORT ---
SEVERITY:- ABNORMAL ECG - SINUS WITH 1ST DEGREE AV BLOCK, LEFT AXIS DEVIATION PROBABLE POSTERIOR INFARCT : Confirmed by: Eros Gage 03-Sep-2016 06:16:25
[2016-09-03] MEDS ORDERED: LEVOTHYROXINE SODIUM 0.025 MG TABLET PO SCH (08:00)
[2016-09-03] MEDS ORDERED: LEVOTHYROXINE SODIUM 0.1 MG TABLET PO SCH (08:00)
[2016-09-03] MEDS ORDERED: (PENDING PHARMACY ID) (Levothyroxine Sodium [Synthroid] 125 MCG) PO SCH (08:00)
[2016-09-03] MEDS ORDERED: ENOXAPARIN SODIUM INJ 40 MG/0.4 ML DISP.SYRIN SUBCUT SCH (08:00)
[2016-09-03 08:24] LABS: CREATINE KINASE MB 9.49 ng/mL (<4.55)
[2016-09-03 08:29] LABS: TROPONIN I 0.916 ng/mL
[2016-09-03] MEDS ORDERED: ENOXAPARIN SODIUM INJ 80 MG/0.8 ML DISP.SYRIN SUBCUT SCH (10:00)
[2016-09-03] MEDS ORDERED: METOPROLOL TARTRATE 25 MG TABLET PO SCH (10:00)
[2016-09-03] MEDS ORDERED: ASPIRIN 325 MG TABLET, ENT COATED PO SCH (10:00)
[2016-09-03] MEDS ORDERED: SODIUM CHLORIDE 5% OPH SOLN 15 ML OD SCH (10:00)
[2016-09-03] MEDS ORDERED: DOCUSATE SODIUM 100 MG CAPSULE PO SCH (10:00)
[2016-09-03] MEDS ORDERED: (PENDING PHARMACY ID) (Bromfenac Sodium [Prolensa] 1 DROP) OD SCH (10:00)
[2016-09-03] MEDS ORDERED: NITROGLYCERIN 10 MG (0.4 MG/HR) PATCH.TD24 TD SCH (10:00)
[2016-09-03] MEDS ORDERED: CLOPIDOGREL BISULFATE 75 MG TABLET PO SCH (10:00)
[2016-09-03] MEDS ORDERED: LISINOPRIL 10 MG TABLET PO SCH (10:00)
--- NOTE | 2016-09-03 10:06 | Progress Note ---
Provider Note Provider Note: 09/02/2016: Late evening, I was informed by radiology staff that patient had refused MRI. At that time, it was too late to try to convince the patient to have the study, since public health sanitarian technician had gone home and MRI would not be available until the morning of the eighth. The following morning, shortly after midnight, patient's elevated troponin level was noted. Telephone discussion with his intensive care unit nurse revealed that he was awake alert and appropriate and pain-free, with good vital signs. Subsequent EKG obtained and reviewed. At 12:20 AM, I discussed the above findings with Dr. Gage, compilation clerk informatics pharmacist. He felt the increase in the troponin was likely due to his prominent hypertension, which at that time had been brought under control with medication. He recommended continuing current care, with no systemic anticoagulation at that point in time. Approximate 5 AM, patient's troponin, much more elevated was noted. Telephone discussion with patient's intensive care unit nurse revealed once again, he was completely chest pain-free and resting quietly. Repeat EKG was obtained and reviewed. 5:13 AM, I discussed the increased troponin with Dr. Gage, compilation clerk informatics pharmacist. He recommended no change in current plan of care. At 5:30 AM, I was contacted by Dr. Gage who recommended repeat head CT scan. If this were negative, he recommended systemic anticoagulation and to consider transfer of the patient to a tertiary center. Stat head CT without contrast was ordered. Above issues discussed with the daytime hospitalist team.
--- NOTE | 2016-09-03 10:06 | PDOC TRANSFER SUMMARY ---
General Admission Date/PCP: 09/02/16 14:01 IGOR DAUGHERTY MD Transfer Date: 09/03/16 Accepting Facility: [facility] Accepting Physician: dr knigth Resuscitation Status: Full Code - Transfer Diagnosis (1) NSTEMI (non-ST elevated myocardial infarction) Is this a current diagnosis for this admission?: YesDiagnosis Summary: Presented to the hospital with possible cardiac equivalent of intractable epigastric pain prompting excessive use of Percocet leading to opiate and Tylenol toxicity. During the treatment of those 2 conditions, he became hypertensive reaching a peak pressures of 240/140 and suffered EKG changes with [address] depression in leads V3 6 with reciprocal change in lead aVR and rising cardiac enzymes with troponin peaking at 1.02 during the night and repeat this morning at 0.916 with CK levels upper limit of normal at 99 and CK-MB also rising now to 9.49. He was started on nitroglycerin drip with good control of the blood pressures that has since been discontinued and transitioned to transdermal nitroglycerin with improvement in his hemodynamics. He is started on a beta blanco with metoprolol 25 mg twice a day, atorvastatin 20 mg daily at bedtime, Plavix 75 mg daily, aspirin 325 mg daily, lisinopril 10 mg daily and finally Lovenox 1 mg/kg subcutaneous twice a day. The patient is chest pain-free but it's difficult to ascertain whether that's related to the large dose of opiate ingested yesterday or the nitroglycerin given currently. He has a history of hypertension and hyperlipidemia and with his age is at risk for atherosclerotic coronary vascular disease. I spoke with Aundrea Spencer who was agreed to accept the patient in transfer for invasive cardiac evaluation not available at this facility. (2) Acetaminophen toxicity Is this a current diagnosis for this admission?: YesDiagnosis Summary: Accidental overdose through excessive use of Percocet in the treatment of the above. His initial acetaminophen level was 131 presumably within 4 hours of ingestion touching the bottom part of the nomogram curve. After consultation with poison control, they recommended initiation of Acetadote and given his nausea this was treated IV. His LFTs remained normal throughout. His acetaminophen level has now reached undetectable levels and after repeat consultation with poison control the Acetadote transfusion was discontinued at 10:00 this morning. (3) Epigastric pain Is this a current diagnosis for this admission?: YesDiagnosis Summary: Unclear whether this is cardiac equivalent or related to underlying esophagogastro disease. Continue PPI therapy twice a day. Would likely benefit from gastroenterology evaluation at some point in the near future once his cardiac issues are appropriately resolved. (4) Gastroesophageal reflux disease Is this a current diagnosis for this admission?: YesDiagnosis Summary: As noted above, treat with PPI twice a day. (5) Hypothyroidism Is this a current diagnosis for this admission?: YesDiagnosis Summary: TSH shows good control on current hormone therapy. (6) Hyperlipidemia Is this a current diagnosis for this admission?: YesDiagnosis Summary: Continue atorvastatin, lipid panel still pending as of this dictation. (7) Depression Is this a current diagnosis for this admission?: YesDiagnosis Summary: Unclear to what extent this contributed to his presentation. He reports insomnia, racing thoughts and auditory hallucinations during the night. I believe he would benefit from a mental health evaluation at some point in the near future. I do not believe he intended to harm himself. (8) Headache Is this a current diagnosis for this admission?: YesDiagnosis Summary: The "buzzing" in his head likely related to the Tylenol toxicity. He CT of the head 2 was negative for intracranial bleed or acute ischemic changes and he was scheduled for MRI of the brain but transferred before test to be completed. Defer to the accepting facility regarding additional workup of his headache. He reports resolution of the buzzing sound and headache this morning and in spite of continue nitroglycerin use which I find encouraging. (9) Opiate or related narcotic overdose Is this a current diagnosis for this admission?: YesDiagnosis Summary: Ultimately the large dose of oxycodone ingested with the Percocet for the treatment of the above complaints caught up with him leading to a brief episode of obtunded state responsive to Narcan drip for approximately 8 hours overnight discontinued at 0200 this morning. The patient is currently alert and oriented and appropriate and suffering no persistent ill effects from his opiate toxicity. - Transfer Medications Home Medications: Allopurinol [Allopurinol] 300 mg PO DAILY 09/02/16 Bromfenac Sodium [Prolensa] 1 drop OD DAILY 09/02/16 Cholecalciferol (Vitamin D3) [Vitamin D3] 50,000 unit PO [id number] 09/02/16 Dexlansoprazole [Dexilant 60 mg Capsule] 60 mg PO DAILY 09/02/16 Docusate Sodium [Doc-Q-Lace] 100 mg PO Q8HP PRN 09/02/16 Esomeprazole Magnesium [Nexium] 40 mg PO DAILY 09/02/16 Levothyroxine Sodium [Synthroid] 125 mcg PO QAM 09/02/16 Ondansetron HCl [Ondansetron HCl] 1 tab PO Q6HP PRN 09/02/16 Oxycodone HCl/Acetaminophen [Oxycodone-Acetaminophen 5-325] 1 tab PO Q12HP PRN 09/02/16 Prednisolone Acetate [Pred Forte] 1 drop OD QID 09/02/16 Ranitidine HCl [Zantac 150 mg Tablet] 150 mg PO DAILY 09/02/16 Sodium Chloride [Fransisca-128 Oph Soln 5% 15 ml] 1 drop OD TID 09/02/16 Timolol Maleate [Timoptic 0.5% Oph Soln 5 ml] 1 drop OU Q12 09/02/16 Transfer Medications: Current Medications Albuterol/Ipratropium (Duoneb 3 Ml Ampul) 3 ml NEB RTQ6HP PRN PRN Reason: WHEEZING Stop: 10/02/16 14:00 Aspirin (Ecotrin 325 Mg Ec Tablet) 325 mg PO DAILY [facility] Stop: 10/03/16 09:59 Atorvastatin Calcium (Lipitor 20 Mg Tablet) 20 mg PO QHS MANUEL Stop: 10/02/16 21:59 Last Admin: 09/02/16 21:31 Dose: Not Given Clopidogrel Bisulfate (Plavix 75 Mg Tablet) 75 mg PO DAILY [facility] Stop: 10/03/16 09:59 Docusate Sodium (Colace 100 Mg Capsule) 100 mg PO DAILY [facility] Stop: 10/03/16 09:59 Enoxaparin Sodium (Lovenox Inj 80 Mg/0.8 Ml Disp.Syrin) 80 mg SUBCUT Q12 [facility] Stop: 10/03/16 09:59 Levothyroxine Sodium (Synthroid 0.1 Mg Tablet) 0.1 mg PO QAM [facility] Stop: 10/03/16 07:59 Levothyroxine Sodium (Synthroid 0.025 Mg Tablet) 0.025 mg PO QAM [facility] Stop: 10/03/16 07:59 Lisinopril (Prinivil 10 Mg Tablet) 10 mg PO DAILY [facility] Stop: 10/03/16 09:59 Last Admin: 09/02/16 18:08 Dose: Not Given Magnesium Hydroxide (Milk Of Magnesia 30 Ml Udcup) 30 ml PO HSP PRN PRN Reason: FOR CONSTIPATION Stop: 10/02/16 14:00 Metoprolol Tartrate (Lopressor Inj/Pf 5 Mg/5 Ml Sdv) 5 mg IV Q6HP PRN Stop: 10/02/16 16:27 Last Admin: 09/02/16 16:58 Dose: 5 mg Metoprolol Tartrate (Lopressor 25 Mg Tablet) 25 mg PO Q12 [facility]EL Stop: 10/03/16 09:59 Nitroglycerin (Nitro-Dur 10 Mg (0.4mg/Hr) Transdermal Patch) 1 each TD DAILY [facility] Stop: 10/03/16 09:59 Ondansetron HCl (Zofran Inj/Pf 4 Mg/2 Ml Sdv) 4 mg IV Q4HP PRN PRN Reason: FOR NAUSEA/VOMITING Stop: 10/02/16 14:09 Pantoprazole Sodium (Protonix Iv Inj 40 Mg Vial) 40 mg IV Q12 [facility] Stop: 09/05/16 21:59 Last Admin: 09/02/16 21:34 Dose: 40 mg Patient Own Medication (Bromfenac Sodium [Prolensa]) 1 drop OD DAILY [facility] Stop: 10/03/16 09:59 Prednisolone Acetate (Inflamase 1% Oph Susp 5 Ml) 1 drop OD QID [facility] Stop: 10/02/16 21:59 Last Admin: 09/02/16 21:35 Dose: 1 drop Ranolazine (Ranexa 500 Mg Tab.Sr) 500 mg PO Q12 [facility] Stop: 10/02/16 21:59 Last Admin: 09/02/16 21:31 Dose: Not Given Sodium Chloride (Saline Flush 2.5 Ml Monoject Prefil Syrin) 2.5 ml IV Q8 [facility] Stop: 10/02/16 21:59 Last Admin: 09/03/16 06:28 Dose: 2.5 ml Sodium Chloride (Fransisca-128 Oph Soln 5% 15 Ml) 1 drop OD TID [facility] Stop: 10/03/16 09:59 Timolol Maleate (Timoptic 0.5% Oph Soln 5 Ml) 1 drop OU Q12 [facility] Stop: 10/02/16 21:59 Last Admin: 09/02/16 22:06 Dose: 1 drop - Allergies Allergies/Adverse Reactions: No Known Allergies Allergy (Verified 08/18/16 14:53) - Diet/Activity Discharge Diet: Other (Comments) - Nothing by mouth Hospital Course Hospital Course: MAYA LUCAS is a 89 year old male who was presented to me by the ER physician as an acute Tylenol toxicity but was rather unclear as to why the patient presented to the hospital to begin with. Patient himself tells me that he has been feeling well for the last several weeks. He describes this as anorexia due to nausea and vomiting after eating with regurgitation of undigested food. He describes epigastric gnawing pain that is constant, worse with eating and vomiting improved with Percocets his primary care provider prescribed. The pain is nonradiating and has no other associated symptoms than those mentioned above. He denies hematemesis, melena or hematochezia. He denies fevers or chills. He states he suffers from "severe GERD" diagnosed by Dr. Mascorro by endoscopy in June of this year, unfortunately the procedure was performed in his office and I do not have access to that report. He reports using Percocet 5/325 mg usually 3 tablets per day but over the course of the last couple of days he's increased his dose and this morning he started taking them every 20 minutes at about 0400 and for the next several hours consuming somewhere between 15 and 20 pills prior to his arrival at 0900 in the ED. He also complains of a rather odd constellation of symptoms including a dull aching headache that waxes and wanes, is worse with the nausea and vomiting, may or may not preceded he's not sure, is unrelieved by anything other than passing of time lasting anywhere from minutes to hours, and associated with blurry vision, and "blurry thinking". He reports severe depression over the last several weeks with racing thoughts" odd voices" in his head at night. He describes these voices as random, nonsensical words that we will suddenly pop into his head one after another in no particular sequence in no particular pattern but he finds the process disturbing and prevents him from sleeping. he also has unusual dreams that often awaken him from sleep leaving him with no more than a couple hours of sleep per night and almost no sleep over the last 3 nights. He reports using Tylenol PM and melatonin to assist with sleep with no effect. He also describes a "buzzing" in his head but interestingly denies tinnitus. He becomes very emotional describing these events, clearly frightened , very concerned "something serious is going on". Evaluation in the emergency department shows him to be Tylenol toxic with a level of 131, unfortunately impossible to say that this is only an acute intoxication, more like acute on chronic given his Tylenol use noted above. Nevertheless, poison control was consulted and recommended treatment, due to his nausea ED physician elected for IV Mucomyst and has asked us to admit for further treatment and evaluation. Several hours after his admission the patient suddenly became obtunded, unarousable to noxious stimuli with note made of marked change in his hemodynamics including severe hypertension peaking at 240/140, a short burst of atrial tachycardia resembling atrial fibrillation that responded to a single dose of IV metoprolol 5 mg no improvement in his hypertension. Stat EKG revealed changes suggestive of acute ischemia with [address] segment depression in leads V 3 through 6 and reciprocal changes in lead aVR. He was then started on nitroglycerin drip and transferred to the ICU where his blood pressures improved through the course of the night and he has since transitioned off of nitroglycerin drip to transdermal mitral last blood pressure 148/90. His obtunded state was thought secondary to the large opiate dose he self administered prior to arrival finally catching up with him and he appropriately responded to IV Narcan push and then ultimately a Narcan drip. He was continued on the Narcan drip through the night weaned off at 0200 this morning. He remains alert and oriented to person place time and circumstances and is in the room conversing with his appropriately. His troponins trended up as did his CK-MB implying acute ischemia, since he is to receive such a large opiate dose and then on nitroglycerin and so difficult to ascertain whether the presenting epigastric pain was a cardiac equivalent or not. Given his risk factors and these laboratory findings, cardiology was consult it and felt it prudent to transfer the patient for invasive cardiac evaluation including heart catheter and possible stenting. The patient's renal function is excellent his serum creatinine is 0.6. He is placed on appropriate ACS protocol and stable for transfer at this time. Of note, his liver function tests remained normal throughout his hospitalization , he tolerated the IV Acetadote without complication and after repeat consultation with poison control this morning with his Tylenol level less than 10 and normal LFTs they recommended discontinuation of the Acetadote. Therefore all critical care drips have since been discontinued including nitroglycerin, Acetadote and Narcan. I spoke with the accepting hospitalist, Dr Knight at [facility] they have a bed available and will be transporting the patient later this morning. Physical Exam Vital Signs: Temp Pulse Resp BP Pulse Ox 97.8 F 71 19 112/70 99 09/03/16 08:00 09/03/16 08:00 09/03/16 08:00 09/03/16 08:00 09/03/16 08:00 Intake & Output 09/02/16 09/03/16 09/04/16 06:59 06:59 06:59 Intake Total 2304 Output Total 350 900 Balance 1954 - Weight 80.1 kg PHYSICAL EXAM GENERAL: NAD; well developed, well nourished; no obese; alert and oriented to person, place, time, situation HEENT: normocephalic, atraumatic; EOMI, PERRLA, no conjunctival injection, no scleral icterus; oral mucosa moist, neck supple, no LAD, normal ROM RESPIRATORY: no accessory muscle use, no increased WOB, good air entry bilaterally; no wheezes, rales, rhonchi; bibasilar mild inspiratory crackles CARDIO: no JVD; RRR; "galloping" heart sounds, probably S4, soft systolic murmur ; no tachycardia VASCULAR: no carotid bruit; no abdominal bruit; no pallor; 2+ radial, DP pulse ; normal capillary refill GI: soft; nondistended; normal bowel sounds; no hepato spleno megaly; no rebound, rigidity, guarding; remains mildly tender to palpation over the epigastrium NEURO: normal patella reflexes; normal motor function; no gait abnl's; no dysarthria; no nystagmus; tongue protrudes midline MSK: 5/5 strength; normal ROM hips; ambulatory without assistance; no muscle tenderness EXTREMITIES: no calf tender; no palpable cords in calf; no clubbing, cyanosis ; trace pedal edema PSYCH: Flat affect, depressed mood SKIN: warm; dry; no petechiae; no telengectasias; no jaundice; Results Laboratory Results: 09/02/16 18:30 09/03/16 03:15 09/02/16 09/02/16 09/02/16 17:10 17:10 17:15 WBC RBC Hgb Hct MCV MCH MCHC RDW Plt Count Seg Neutrophils % Lymphocytes % Monocytes % Eosinophils % Basophils % Absolute Neutrophils Absolute Lymphocytes Absolute Monocytes Absolute Eosinophils Absolute Basophils Carbonic Acid 0.88 L HCO3/H2CO3 Ratio 21:1 ABG pH 7.43 ABG pCO2 29.2 L ABG pO2 76.9 L ABG HCO3 19.0 L ABG O2 Saturation 95.9 ABG Base Excess -3.8 FiO2 ROOMAIR Sodium 135.6 L Potassium 3.9 Chloride 99 Carbon Dioxide 20 L Anion Gap 17 BUN 14 Creatinine 0.71 Est GFR ( Amer) > 60 Est GFR (Non-Af Amer) > 60 Glucose 124 H Calcium 9.1 Total Bilirubin 1.0 AST 33 ALT 38 Alkaline Phosphatase 69 Ammonia Total Protein 7.1 Albumin 4.1 TSH 3.46 09/02/16 09/02/16 09/03/16 18:30 18:30 03:15 WBC 12.5 H RBC 4.85 Hgb 14.8 Hct 43.7 MCV 90 MCH 30.4 MCHC 33.7 RDW 14.2 H Plt Count 206 Seg Neutrophils % 71.8 Lymphocytes % 17.8 Monocytes % 9.8 Eosinophils % 0.1 Basophils % 0.5 Absolute Neutrophils 9.0 H Absolute Lymphocytes 2.2 Absolute Monocytes 1.2 Absolute Eosinophils 0.0 Absolute Basophils 0.1 Carbonic Acid HCO3/H2CO3 Ratio ABG pH ABG pCO2 ABG pO2 ABG HCO3 ABG O2 Saturation ABG Base Excess FiO2 Sodium 130.5 L Potassium 3.6 Chloride 100 Carbon Dioxide 19 L Anion Gap 12 BUN 12 Creatinine 0.63 Est GFR ( Amer) > 60 Est GFR (Non-Af Amer) > 60 Glucose 102 Calcium 8.7 Total Bilirubin 0.8 AST 25 ALT 36 Alkaline Phosphatase 55 Ammonia < 8.7 L Total Protein 5.6 L Albumin 3.1 L TSH 09/02/16 09/02/16 09/02/16 17:10 17:10 17:10 Creatine Kinase 45 L CK-MB (CK-2) 2.44 Troponin I 0.085 NT-Pro-B Natriuret Pep 09/02/16 09/02/16 09/03/16 23:05 23:05 03:15 Creatine Kinase 61 99 CK-MB (CK-2) 4.01 Troponin I 0.377 NT-Pro-B Natriuret Pep 2570 H 09/03/16 09/03/16 03:15 07:35 Creatine Kinase CK-MB (CK-2) 9.49 H Troponin I 1.020 0.916 NT-Pro-B Natriuret Pep Impressions: Chest X-Ray 09/02/16 00:00 IMPRESSION: COPD. NO ACUTE RADIOGRAPHIC FINDING IN THE CHEST. Abdomen/Pelvis CT 09/02/16 09:21 IMPRESSION: No CT findings to explain history of acute abdominal pain. Multiple bilateral renal cortical cysts. Post cholecystectomy. Left lower pole intrarenal nonobstructive stone. Head CT 09/03/16 00:00 IMPRESSION: Mild ischemic changes are present and are stable in appearance. No acute findings. Plan Discharge Plan: Transfer to [facility] for interventional cardiac evaluation. Continue ACS protocol. Patient is agreeable to transfer, at the bedside also agreeable. All questions were asked and answered to their satisfaction. He is stable for transfer at this time.
[2016-09-03] MEDS: PANTOPRAZOLE SODIUM 40 MG VIAL IV SCH (10:08)
[2016-09-03] MEDS: PREDNISOLONE ACETATE 1% OPH SUSP 5 ML OD SCH (10:12)
[2016-09-03] MEDS: TIMOLOL MALEATE 0.5% OPH SOLN 5 ML OU SCH (10:12)
[2016-09-03] MEDS: RANOLAZINE 500 MG TAB.SR.12H PO SCH (11:02)
[2016-09-03 12:46] VITALS: BP 116/53
[2016-09-03] MEDS ORDERED: ASPIRIN 300 MG SUPP, RECTAL PR SCH (18:00)
== END 2016-09-03 12:55 | disposition short-term general hospital (02) | DRG 917 ==
LOC: ER 08:57 → EH 13:45 → UNDOADMIN 13:45 → EH 14:01 → ICU 23:20
PROVIDERS: ADMIT Internal Medicine; ATTEND Internal Medicine
DX: T39.1X1A Poisoning by 4-Aminophenol derivatives, accidental (unintentional), initial encounter (principal); I21.4 Non-ST elevation (NSTEMI) myocardial infarction; I67.4 Hypertensive encephalopathy; T40.601A Poisoning by unspecified narcotics, accidental (unintentional), initial encounter; I10 Essential (primary) hypertension; K21.9 Gastro-esophageal reflux disease without esophagitis; I25.10 Atherosclerotic heart disease of native coronary artery without angina pectoris; E78.5 Hyperlipidemia, unspecified; E03.9 Hypothyroidism, unspecified; R51 Headache; F32.9 Major depressive disorder, single episode, unspecified; Y92.009 Unspecified place in unspecified non-institutional (private) residence as the place of occurrence of the external cause
CPT/HCPCS: 36415; 70450; 71010; 74177; 80053; 80307; 81001; 82140; 82550; 82553; 82803; 82962; 83605; 83690; 83735; 83880; 84100; 84443; 84484; 85025; 85610; 85730; 93005; 93010; 96361; 96374; 99285; J0132; J0360; J1650; J2310; J2405; J3490; J7030; J7040; J7060; S0164

== ENCOUNTER 2016-09-28 08:50 | Day surgery (SDC) | payer MEDICARE, OTHER ==
--- NOTE | 2016-09-21 15:05 | HISTORY AND PHYSICAL E ---
History and Physical NAME: MAYA LUCAS : 1925 AGE: 89Y ADMITTED: 09/28/2016 ROOM: HISTORY: An 89-year-old patient with exacerbation of reflux, referred by Dr. Mitchell, complaining of nausea, reflux, abdominal pain. Patient for upper scope. SOCIAL HISTORY: . Does not smoke, drinks occasional wine. SURGERIES: 1. Colonoscopy 15 years ago. 2. Recent endoscopy in 2016, Dr. Kaplan because of exacerbation of reflux. Patient being reinvestigated with exacerbation of reflux. 3. Cholecystectomy. REVIEW OF SYSTEMS: CARDIAC: Hypertension. RESPIRATORY: Bronchitis. MUSCULOSKELETAL: Osteoarthritis. PAST MEDICAL HISTORY: Patient does have history of: 1. Hypothyroid. 2. Kidney stones. 3. Abdominal pain. 4. Nausea. 5. Reflux. 6. Skin cancer. FAMILY HISTORY: Father of old age. Mom of old age. PHYSICAL EXAMINATION: GENERAL: 89. VITAL SIGNS: Blood pressure 140/70, pulse 80, respirations 18, weight 183. HEENT: Normal. ABDOMEN: Soft. NEUROLOGIC: Negative. MEDICATIONS: 1. Stool softener. 2. Miralax. 3. Allopurinol. 4. Oxycodone 5/325. 5. Zofran. 6. Nexium. PLAN: Upper scope. Patient was given Dexilant, no response. Continues to have exacerbation of symptoms. Patient being admitted regarding upper scope, hypothyroid, degenerative joint disease. DICTATING PHYSICIAN: TADEO URBANO M.D. [id number] PHY#: [id number] ID: [id number] JOB#: [id number] ACCT: [id number] cc:TADEO URBANO M.D., MICHAEL M.D. >
--- NOTE | 2016-09-22 08:15 | HISTORY AND PHYSICAL E ---
History and Physical NAME: MAYA LUCAS : 1925 AGE: 89Y ADMITTED: 09/28/2016 ROOM: CHIEF COMPLAINT: Reflux, dysphagia, abdominal pain. SOCIAL HISTORY: . Does not smoke. Does not drink. PAST SURGICAL HISTORY: 1. Cholecystectomy. 2. Bilateral cataracts. 3. Upper endoscopy in 2017. REVIEW OF SYSTEMS: HEAD, EYES, EARS, NOSE, THROAT: Cataract, glaucoma, ? respiratory bronchitis, cold, history of insomnia. CARDIAC: Hypertension, high cholesterol, atherosclerosis. ENDOCRINE: Hypothyroid. History of kidney stones. GASTROINTESTINAL: Nausea, reflux, abdominal pain. ONCOLOGY/HEMATOLOGY: Skin cancer. MUSCULOSKELETAL: Osteoarthritis. FAMILY HISTORY: Father of old age. Mom of old age. PHYSICAL EXAMINATION: VITAL SIGNS: Patient is 89 years old. Blood pressure 140/70, pulse 80, respirations 18, temp 98. HEAD, EYES, EARS, NOSE, THROAT: Normal. ABDOMEN: Soft. NEUROLOGIC: Negative. CONCLUSION: 1. Reflux. 2. Nausea and vomiting. 3. Abdominal pain. PLAN: Upper scope scheduled for 09/28/2016. MEDICATIONS: 1. Crestor. 2. Stool softener. 3. Miralax. 4. Vitamin D. 5. Allopurinol. 6. Zofran. 7. Nexium. DICTATING PHYSICIAN: TADEO URBANO M.D. [id number] PHY#: [id number] ID: [id number] JOB#: [id number] ACCT: [id number] cc:TADEO URBANO M.D., MICHAEL M.D. >
[~2016-09-28 08:50] MED LIST: EPINEPHRINE INJ 1 MG/10 ML DISP.SYRIN ONE; FLUMAZENIL INJ 0.5 MG/5 ML VIAL IV ONE; GLYCOPYRROLATE INJ 0.4 MG/2 ML VIAL ONE; MIDAZOLAM 2 MG/2 ML INJ ONE; NALOXONE HCL INJ/PF 0.4 MG/1 ML SDV ONE; ONDANSETRON HCL INJ/PF 4 MG/2 ML SDV ONE
[2016-09-28] MEDS: FENTANYL CITRATE INJ/PF 100 MCG/2 ML AMPUL ONE ×3 (09:11→09:14)
[2016-09-28 10:21] LABS: ABSOLUTE EOSINOPHILS # (AUTO) 0.3 10^3/uL (0.0-0.6); ABSOLUTE MONOCYTES (AUTO) 0.9 10^3/uL (0.1-1.4); ABSOLUTE NEUT (AUTO) 4.9 10^3/uL (1.7-8.2); BASOPHILS % (AUTO) 0.5 % (0-2); EOSINOPHILS % (AUTO) 3.6 % (0-6); HEMATOCRIT 37.8 % (37.9-51.0); HEMOGLOBIN 12.8 g/dL (13.5-17.0); HGB HCT DIFFERENCE 0.6; LYMPHOCYTES % (AUTO) 24.4 % (13-45); MEAN CORPUSCULAR HEMOGLOBIN 30.8 pg (27.0-33.4); MEAN CORPUSCULAR HGB CONC 33.7 g/dL (32.0-36.0); MEAN CORPUSCULAR VOLUME 91 fl (80-97); RED BLOOD COUNT 4.14 10^6/uL (4.35-5.55); SEGMENTED NEUTROPHILS % (AUTO) 60.5 % (42-78); WHITE BLOOD COUNT 8.1 10^3/uL (4.0-10.5)
[2016-09-28 10:24] VITALS: BP 119/65
--- NOTE | 2016-09-28 15:40 | DISCHARGE SUMMARY E ---
Discharge Summary NAME: MAYA LUCAS : 1925 AGE: 89Y ADMITTED: 09/28/2016 DISCHARGED: 09/28/2016 HISTORY: This 89-year-old gentleman presents with reflux. Upper scope today shows no ulcers, no malignancy, small hiatus hernia with some mild esophagitis with no evidence of stricture or malignancy, and mild gastritis. DISCHARGE PLAN: 1. Assurance. 2. Continue Nexium. 3. Patient to see us in the office in the next few days. DICTATING PHYSICIAN: TADEO URBANO M.D. [id number] PHY#: [id number] ID: [id number] JOB#: [id number] ACCT: [id number] cc:TADEO URBANO M.D., MICHAEL M.D. >
--- NOTE | 2016-09-28 15:41 | OPERATIVE REPORT E ---
Operative Report NAME: MAYA LUCAS : 1925 AGE: 89Y DATE OF SURGERY: 09/28/2016 ROOM: PREOPERATIVE DIAGNOSIS: Gastroesophageal reflux disease. POSTOPERATIVE DIAGNOSES: 1. Esophagitis, mild. 2. Small hiatus hernia, 0.5 cm. 3. No stricture. No malignancy. PROCEDURE: 1. Esophagoscopy. 2. Gastroscopy. 3. Duodenoscopy. SURGEON: TADEO URBANO M.D. ANESTHESIA: Versed 2 and fentanyl 100. TISSUE REMOVED OR ALTERED: None. PROCEDURE: Baby scope passed under guided vision. No difficulties. Esophagoscopy junction at 40. Distal esophagus shows small 1 cm hiatus hernia. Slight irregularity at the Z-line consistent with reflux. No ulcers. No malignancy. No definite stricture. Scope passed through the GE junction with no difficulties. Gastroscopy: No ulcers. Mild gastritis. Duodenoscopy: No ulcers. Mild duodenitis. CONCLUSION: Gastroesophageal reflux disease with small hiatus hernia. No stricture. No malignancy or ulcers. Patient had recent ENT evaluation. Shows some weakness in the focal cords. On vocal cord evaluation by upper scope shows no malignancy, some asymmetry and weakness. Patient tolerated procedure well. Discharged to his room in stable condition. DICTATING PHYSICIAN: TADEO URBANO M.D. [id number] Y#: [id number] ID: [id number] JOB#: [id number] ACCT: [id number] cc:TADEO URBANO M.D., MICHAEL M.D. >
== END 2016-09-28 10:30 | disposition home or self-care (01) ==
LOC: END 08:50
PROVIDERS: ATTEND Specialist
PROC: 0DJD8ZZ Inspection of Lower Intestinal Tract, Via Natural or Artificial Opening Endoscopic (ICD-10-PCS; principal; 2016-09-28 09:00)
DX: K21.0 Gastro-esophageal reflux disease with esophagitis (principal); K44.9 Diaphragmatic hernia without obstruction or gangrene; K29.70 Gastritis, unspecified, without bleeding; R97.0 Elevated carcinoembryonic antigen [CEA]; K29.50 Unspecified chronic gastritis without bleeding; I10 Essential (primary) hypertension; E78.00 Pure hypercholesterolemia, unspecified; I70.90 Unspecified atherosclerosis; E03.9 Hypothyroidism, unspecified; M19.90 Unspecified osteoarthritis, unspecified site; Z85.828 Personal history of other malignant neoplasm of skin; Z79.899 Other long term (current) drug therapy; Z87.442 Personal history of urinary calculi
CPT/HCPCS: 43235; 36415; 82378; 85025; J2250; J3010; J2405; J0171; J2310; J3490

== ENCOUNTER 2016-11-04 17:13 | Observation (INO) | payer MEDICARE, OTHER ==
--- NOTE | 2016-11-04 17:35 | RADIOLOGY REPORT (SQ) ---
EXAM DESCRIPTION: CHEST SINGLE VIEW COMPLETED DATE/TIME: 11/04/2016 5:28 pm REASON FOR STUDY: ams COMPARISON: 09/02/2016 EXAM PARAMETERS: NUMBER OF VIEWS: One view. TECHNIQUE: Single frontal radiographic view of the chest acquired. RADIATION DOSE: NA LIMITATIONS: None. FINDINGS: LUNGS AND PLEURA: No opacities, masses or pneumothorax. No pleural effusion. MEDIASTINUM AND HILAR STRUCTURES: No masses. Contour normal. HEART AND VASCULAR STRUCTURES: Heart normal in size. Normal vasculature. BONES: Scoliosis HARDWARE: None in the chest. OTHER: No other significant finding. IMPRESSION: NO ACUTE RADIOGRAPHIC FINDING IN THE CHEST. TECHNICAL DOCUMENTATION: JOB ID: [id number]
--- NOTE | 2016-11-04 17:36 | RADIOLOGY REPORT (SQ) ---
EXAM DESCRIPTION: CT HEAD WITHOUT COMPLETED DATE/TIME: 11/04/2016 5:22 pm REASON FOR STUDY: s/s stroke COMPARISON: 09/03/2016 TECHNIQUE: Axial images acquired through the brain without intravenous contrast. Images reviewed wi th bone, brain and subdural windows. Images stored on PACS. All CT scanners at this facility use dose modulation, iterative reconstruction, and/or weight based d osing when appropriate to reduce radiation dose to as low as reasonably achievable (ALARA). [facility]: Dose Right [facility]: CareDose [facility]: Dose Right [facility]: Teradose 4D [facility]: IZEA RADIATION DOSE: 64.61mGy. LIMITATIONS: None. FINDINGS: VENTRICLES: Prominent. CEREBRUM: No masses. No hemorrhage. No midline shift. Areas of low density in the white matter mos t likely due to chronic micro-vascular ischemic change. No evidence for acute infarction. CEREBELLUM: No masses. No hemorrhage. No alteration of density. No evidence for acute infarction. EXTRAAXIAL SPACES: Age-related involutional change. No fluid collections. No masses. ORBITS AND GLOBE: No intra- or extraconal masses. Normal contour of globe without masses. CALVARIUM: No fracture. PARANASAL SINUSES: No fluid or mucosal thickening. SOFT TISSUES: No mass or hematoma. OTHER: No other significant finding. IMPRESSION: No acute intracranial findings. CHRONIC CHANGES OF ATROPHY AND MICROVASCULAR ISCHEMIA. TECHNICAL DOCUMENTATION: JOB ID: [id number] Quality ID # [id number]: Final reports with documentation of one or more dose reduction techniques (e.g., Au tomated exposure control, adjustment of the mA and/or kV according to patient size, use of iterative reconstruction technique) 2010 [employer]- All Rights Reserved
[2016-11-04] MEDS ORDERED: LABETALOL HCL INJ 20 MG/4 ML DISP.SYRIN IV ONE ×5 (17:41→18:46)
[2016-11-04 17:48] LABS: ABSOLUTE BASOPHILS # (AUTO) 0.1 10^3/uL (0.0-0.2); ABSOLUTE EOSINOPHILS # (AUTO) 0.3 10^3/uL (0.0-0.6); ABSOLUTE LYMPHOCYTES (AUTO) 1.9 10^3/uL (0.5-4.7); ABSOLUTE MONOCYTES (AUTO) 0.6 10^3/uL (0.1-1.4); ABSOLUTE NEUT (AUTO) 3.6 10^3/uL (1.7-8.2); BASOPHILS % (AUTO) 0.9 % (0-2); EOSINOPHILS % (AUTO) 5.1 % (0-6); HEMATOCRIT 41.5 % (37.9-51.0); HEMOGLOBIN 13.7 g/dL (13.5-17.0); HGB HCT DIFFERENCE -0.4; LYMPHOCYTES % (AUTO) 28.8 % (13-45); MEAN CORPUSCULAR HEMOGLOBIN 30.6 pg (27.0-33.4); MEAN CORPUSCULAR VOLUME 93 fl (80-97); MONOCYTES % (AUTO) 9.9 % (3-13); RED BLOOD COUNT 4.48 10^6/uL (4.35-5.55); RED CELL DISTRIBUTION WIDTH 14.3 % (11.5-14.0); SEGMENTED NEUTROPHILS % (AUTO) 55.3 % (42-78); WHITE BLOOD COUNT 6.5 10^3/uL (4.0-10.5)
[2016-11-04 17:57] LABS: PROTHROMBIN TIME 13.3 SEC (11.4-15.4)
[2016-11-04 18:08] LABS: ALANINE AMINOTRANSFERASE 28 U/L (21-72); ALKALINE PHOSPHATASE 94 U/L (38-126); ANION GAP 11 (5-19); ASPARTATE AMINO TRANSFERASE 23 U/L (17-59); BILIRUBIN,DIRECT 0.3 mg/dL (0.0-0.4); BILIRUBIN,TOTAL 0.5 mg/dL (0.2-1.3); BLOOD UREA NITROGEN 18 mg/dL (7-20); CALCIUM 9.5 mg/dL (8.4-10.2); CARBON DIOXIDE 23 mmol/L (22-30); CHLORIDE 103 mmol/L (98-107); CREATINE KINASE 43 U/L (55-170); CREATININE RESULT 0.92 mg/dL (0.52-1.25); GLUCOSE 103 mg/dL (75-110); MAGNESIUM 2.2 mg/dL (1.6-2.3); POTASSIUM 4.1 mmol/L (3.6-5.0); TOTAL PROTEIN 7.1 g/dL (6.3-8.2)
[2016-11-04 18:09] LABS: ALCOHOL < 10 mg/dL (NONE DETECTED)
[2016-11-04 18:12] LABS: APPEARANCE,URINE CLEAR; BILIRUBIN,URINE NEGATIVE (NEGATIVE); GLUCOSE, URINE NEGATIVE (NEGATIVE); KETONES,URINE NEGATIVE (NEGATIVE); LEUKOCYTE ESTERASE,URINE NEGATIVE (NEGATIVE); NITRITE,URINE NEGATIVE (NEGATIVE); PROTEIN,URINE NEGATIVE (NEGATIVE); URINE SPECIFIC GRAVITY 1.003; UROBILINOGEN,URINE NEGATIVE mg/dL (<2.0)
[2016-11-04 18:19] LABS: CREATINE KINASE MB 0.92 ng/mL (<4.55)
[2016-11-04 18:20] LABS: TROPONIN I < 0.012 ng/mL
--- NOTE | 2016-11-04 18:57 | ER Document Report ---
ED General - General Chief Complaint: S/S of Possible Stroke Stated Complaint: POSSIBLE STROKE Time Seen by Provider: 11/04/16 17:27 Mode of Arrival: Medic Information source: Relative, Emergency Med Personnel Cannot obtain history due to: Altered mental status Notes: This is an 89-year-old male with a history of hypertension who presents with altered mental status and concern for stroke. History is obtained from EMS and from the patient's as the patient is not conversant at this time. Patient' s states that he was not feeling well this morning and told her he felt "like he was going to " and decided to lay down and take a nap. Upon awakening from his nap at about 1230 today states that he was altered. She reports decreased responsiveness and slight R facial droop. He complained of headache. She reports that he has been compliant with his medication. No recent illnesses , fevers. TRAVEL OUTSIDE OF THE [place] IN LAST 30 DAYS: No - Related Data Allergies/Adverse Reactions: No Known Allergies Allergy (Verified 09/26/16 13:21) Past Medical History - General Information source: Relative, [facility] Cannot obtain history due to: Altered mental status - Social History Smoking Status: Former Smoker Frequency of alcohol use: None Drug Abuse: None Lives with: Family Family History: None. denies: Arthritis, CAD, COPD, CVA, DM, Hyperlipidemia, Hypertension, Malignancy, Thyroid Disfunction - Past Medical History Cardiac Medical History: Reports: Hx Coronary Artery Disease, Hx Hypercholesterolemia, Hx Hypertension Denies: Hx Heart Attack Pulmonary Medical History: Denies: Hx Asthma, Hx Bronchitis, Hx COPD, Hx Pneumonia Neurological Medical History: Denies: Hx Cerebrovascular Accident, Hx Seizures Endocrine Medical History: Reports: Hx Hypothyroidism Renal/ Medical History: Reports: Hx Kidney Stones. Denies: Hx Peritoneal Dialysis GI Medical History: Reports: Hx Gastroesophageal Reflux Disease Musculoskeltal Medical History: Reports Hx Arthritis - HIP/KNEE PAIN all over Past Surgical History: Reports: Hx Cholecystectomy, Other - eye right, recent EGD - Immunizations Hx Diphtheria, Pertussis, Tetanus Vaccination: Yes Hx Pneumococcal Vaccination: 05/29/16 Review of Systems - Review of Systems -: Yes ROS unobtainable due to patient's medical condition Physical Exam - Vital signs Vitals: Pulse Resp BP Pulse Ox 80 20 210/100 H 96 11/04/16 17:30 11/04/16 17:30 11/04/16 17:30 11/04/16 17:30 - Notes Notes: PHYSICAL EXAMINATION: GENERAL: Ill appearing male, responds to loud voice and sternal rub, but will not open eyes or answer questions HEAD: Atraumatic, normocephalic. EYES: Pupils equal round and reactive to light ENT: nares patent, oropharynx clear without exudates. Moist mucous membranes. NECK: supple without lymphadenopathy LUNGS: Breath sounds clear to auscultation anteriorly bilaterally and equal. No wheezes rales or rhonchi. HEART: Regular rate and rhythm without murmurs ABDOMEN: Soft, nontender, normoactive bowel sounds. EXTREMITIES: no edema or deformity NEUROLOGICAL: unable to assess cranial nerves secondary to pt cooperation. 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 On reevaluation patient is still drowsy but able to open his eyes and answer questions. His mental status is much improved. Repeat neurologic exam demonstrates slight right facial droop but otherwise neurologically intact. Symptoms today concerning for possible TIA versus CVA and hypertensive urgency. Will discuss with hospitalist for admission. - Vital Signs Vital signs: Temp Pulse Resp BP Pulse Ox 80 15 141/75 H 96 11/04/16 17:30 11/04/16 20:16 11/04/16 20:16 11/04/16 20:16 - Laboratory Result Diagrams: 11/04/16 17:39 11/04/16 17:39 Laboratory results interpreted by me: 11/04/16 11/04/16 17:39 17:39 RDW 14.3 H Creatine Kinase 43 L - Diagnostic Test Radiology reviewed: Reports reviewed - CT head: no acute process CXR: no acute process - EKG Interpretation by Me Additional EKG results interpreted by me: 11/04/16 19:25 EKG at 1742 demonstrates normal sinus rhythm with a rate of 82. There is a first-degree AV block. There is some ST depression anteriorly which was present on his prior EKG. No significant new changes Discharge - Discharge Clinical Impression: Hypertensive urgency CVA (cerebral vascular accident) Qualifiers: CVA mechanism: unspecified Qualified Code(s): I63.9 - Cerebral infarction, unspecified Condition: Fair Disposition: ADMITTED INPATIENT Unit Admitted: [facility]
[2016-11-04] MEDS ORDERED: ASPIRIN 81 MG TABLET, CHEWABLE PO ONE (19:11)
[2016-11-04] MEDS ORDERED: ACETAMINOPHEN 325 MG TABLET PO PRN (19:25)
[2016-11-04] MEDS ORDERED: MAGNESIUM HYDROXIDE SUSP 30 ML UDCUP PO PRN (19:25)
[2016-11-04] MEDS ORDERED: ENALAPRILAT DIHYDRATE INJ/PF 1.25 MG/1 ML SDV IV PRN (20:04)
--- NOTE | 2016-11-04 21:47 | RADIOLOGY REPORT (SQ) ---
EXAM DESCRIPTION: MRI HEAD WITHOUT COMPLETED DATE/TIME: 11/04/2016 9:28 pm REASON FOR STUDY: cva Right facial droop COMPARISON: None. TECHNIQUE: Multiplanar imaging includes non-contrasted T1, T2, FLAIR, and diffusion with ADC map seq uences. Images stored on PACS. LIMITATIONS: None. FINDINGS: ANATOMY: No anomalies. Normal vascular flow voids. Pituitary fossa normal. CSF SPACES: Atrophy induced prominence of ventricles and CSF spaces. CEREBRUM: High signal intensity lesions scattered throughout the white matter on FLAIR imaging with d istribution suggesting micro-vascular ischemic changes. No evidence of hemorrhage, mass, or extraaxi al fluid collection. POSTERIOR FOSSA: No signal alteration. No hemorrhage. No edema, masses or mass effect. Internal miguelito tory canals, cerebello-pontine angles, mastoids normal. DIFFUSION IMAGING: Negative for acute or sub-acute infarction. ORBITS: No masses. Globes normal. PARANASAL SINUSES: No fluid levels. Mucosa normal. OTHER: No other significant finding. IMPRESSION: Negative for acute or sub-acute infarction. TECHNICAL DOCUMENTATION: JOB ID: [id number]- All Rights Reserved
[2016-11-04] MEDS ORDERED: ATORVASTATIN CALCIUM 80 MG TABLET PO SCH (22:00)
[2016-11-04] MEDS: HEPARIN SOD (PORCINE) 5,000 UNIT/ML 1 ML SYRINGE SUBCUT SCH (23:01)
[2016-11-04] MEDS: TIMOLOL MALEATE 0.5% OPH SOLN 5 ML OU SCH (23:05)
[2016-11-05 00:24] LABS: CREATINE KINASE MB 0.84 ng/mL (<4.55); TROPONIN I 0.024 ng/mL
[2016-11-05] MEDS ORDERED: TRAZODONE HCL 50 MG TABLET PO ONE (01:00)
--- NOTE | 2016-11-05 01:24 | PDOC H&P ---
History of Present Illness Admission Date/PCP: 11/04/16 19:25 GAMAL BRYAN, Patient complains of: Headache, altered mental status History of Present Illness: MAYA LUCAS is a 89 year old male a past medical history of Depression, GERD , hypertension and insomnia who has been in his usual state of health until approximately 6 hours prior to presentation. Patient had a headache telling his he felt like he was going to , he took a nap and on upon awakening was having difficulty with speech prompting evaluation in the emergency room. He now states he was extremely anxious and considered it an anxiety attack. Patient admits recent change in medication with addition of Xanax for sleep but only keeps him asleep for a couple of hours he denies abrupt discontinuation. He also states he is discontinued Hyzaar as he believes it causes excessive urination and interrupting sleep. In the emergency room he was found to have a blood pressure of 207/107 and not speaking but becomes conversational and blood pressure returns to 140/70 range without intervention. Upon arrival to the emergency room he was also anxious and not talking but returned to baseline. Patient otherwise denies headache blurred vision hallucination nausea vomiting or chest pain. His workup thus far has been unremarkable he is referred to the hospitalist for observation. Past Medical History Cardiac Medical History: Reports: Coronary Artery Disease, Hyperlipidema, Hypertension Denies: Myocardial Infarction Pulmonary Medical History: Denies: Asthma, Bronchitis, Chronic Obstructive Pulmonary Disease (COPD), Pneumonia Neurological Medical History: Denies: Seizures Endocrine Medical History: Reports: Hypothyroidism GI Medical History: Reports: Gastroesophageal Reflux Disease Musculoskeltal Medical History: Reports: Arthritis - HIP/KNEE PAIN all over Psychiatric Medical History: Reports: Depression Hematology: Denies: Anemia Past Surgical History Past Surgical History: Reports: Cholecystectomy, Other - eye right, recent EGD Social History Information Source: Patient Lives with: Family Smoking Status: Former Smoker Frequency of Alcohol Use: None Hx Recreational Drug Use: No Hx Prescription Drug Abuse: No - Advance Directive Resuscitation Status: Do Not Resuscitate Family History Family History: None. denies: Arthritis, CAD, COPD, CVA, DM, Hyperlipidemia, Hypertension, Malignancy, Thyroid Disfunction Parental Family History Reviewed: Yes Children Family History Reviewed: Yes Sibling(s) Family History Reviewed.: Yes Medication/Allergy Home Medications: Allopurinol [Allopurinol] 300 mg PO DAILY 11/04/16 Cholecalciferol (Vitamin D3) [Vitamin D3 1000 Unit Tablet] 1,000 unit PO DAILY 11/04/16 Cyanocobalamin (Vitamin B-12) [Vitamin B12] 1,000 mcg PO DAILY 11/04/16 Docusate Sodium [Colace 100 mg Capsule] 100 mg PO TID 11/04/16 Ergocalciferol (Vitamin D2) [Vitamin D2] 50,000 unit PO [id number] 11/04/16 Losartan/Hydrochlorothiazide [Hyzaar 50-12.5 Tablet] 1 each PO DAILY 11/04/16 Ondansetron HCl [Zofran] 4 mg PO PRN PRN 11/04/16 Sodium Chloride 1 drop OP PRN PRN 11/04/16 Timolol Maleate [Timoptic 0.5% Oph Soln 5 ml] 1 drop OP DAILY 11/04/16 Allergies/Adverse Reactions: No Known Allergies Allergy (Verified 09/26/16 13:21) Review of Systems Constitutional: ABSENT: chills, fever(s), headache(s), weight gain, weight loss Eyes: ABSENT: visual disturbances Ears: ABSENT: hearing changes Cardiovascular: ABSENT: chest pain, dyspnea on exertion, edema, orthropnea, palpitations Respiratory: ABSENT: cough, hemoptysis Gastrointestinal: ABSENT: abdominal pain, constipation, diarrhea, hematemesis, hematochezia, nausea, vomiting Genitourinary: ABSENT: dysuria, hematuria Musculoskeletal: ABSENT: joint swelling Integumentary: ABSENT: rash, wounds Neurological: ABSENT: abnormal gait, abnormal speech, confusion, dizziness, focal weakness, syncope Psychiatric: PRESENT: anxiety, other - Insomnia. ABSENT: depression, homidical ideation, suicidal ideation Endocrine: ABSENT: cold intolerance, heat intolerance, polydipsia, polyuria Hematologic/Lymphatic: ABSENT: easy bleeding, easy bruising Physical Exam Vital Signs: Temp Pulse Resp BP Pulse Ox 97.4 F 66 17 127/62 H 97 11/04/16 23:56 11/05/16 00:00 11/05/16 00:00 11/05/16 00:00 11/05/16 00:00 Intake & Output 11/03/16 11/04/16 11/05/16 11:59 11:59 11:59 Weight 82.5 kg General appearance: PRESENT: no acute distress, well-developed, well-nourished Head exam: PRESENT: atraumatic, normocephalic Eye exam: PRESENT: conjunctiva pink, EOMI, PERRLA. ABSENT: scleral icterus Ear exam: PRESENT: normal external ear exam Mouth exam: PRESENT: moist, tongue midline Neck exam: ABSENT: carotid bruit, JVD, lymphadenopathy, thyromegaly Respiratory exam: PRESENT: clear to auscultation yfn. ABSENT: rales, rhonchi, wheezes Cardiovascular exam: PRESENT: RRR. ABSENT: diastolic murmur, rubs, systolic murmur Pulses: PRESENT: normal dorsalis pedis pul Vascular exam: PRESENT: normal capillary refill GI/Abdominal exam: PRESENT: normal bowel sounds, soft. ABSENT: distended, guarding, mass, organolmegaly, rebound, tenderness Rectal exam: PRESENT: deferred Extremities exam: PRESENT: full ROM. ABSENT: calf tenderness, clubbing, pedal edema Neurological exam: PRESENT: alert, awake, oriented to person, oriented to place , oriented to time, oriented to situation, CN II-XII grossly intact. ABSENT: motor sensory deficit Psychiatric exam: PRESENT: appropriate affect, normal mood. ABSENT: homicidal ideation, suicidal ideation Skin exam: PRESENT: dry, intact, warm. ABSENT: cyanosis, rash Results Laboratory Results: 11/04/16 11/04/16 23:41 23:41 Creatine Kinase 30 L CK-MB (CK-2) 0.84 Troponin I 0.024 Impressions: Chest X-Ray 11/04/16 00:00 IMPRESSION: NO ACUTE RADIOGRAPHIC FINDING IN THE CHEST. Head CT 11/04/16 00:00 IMPRESSION: No acute intracranial findings. CHRONIC CHANGES OF ATROPHY AND MICROVASCULAR ISCHEMIA. Head MRI 11/04/16 00:00 IMPRESSION: Negative for acute or sub-acute infarction. Assessment & Plan - Diagnosis (1) TIA (transient ischemic attack) Is this a current diagnosis for this admission?: YesPlan: Observation for TIA versus stroke, felt unlikely given his history however given uncontrolled hypertension, headache and aphasia MRI carotid Doppler and observation is ordered. (2) Anxiety attack Is this a current diagnosis for this admission?: YesPlan: Patient now admits uncontrolled anxiety. symptoms may be related to benzodiazepine withdrawal and will consider benzodiazepine as needed. I will initiate a trial of trazodone, consider outpatient mental health follow-up (3) Insomnia Is this a current diagnosis for this admission?: YesPlan: Patient is dissatisfied with Xanax trial will trial trazodone. And education for sleep hygiene (4) Hypertensive urgency Is this a current diagnosis for this admission?: YesPlan: Most likely secondary to uncontrolled anxiety he will be monitored with consideration of optimization of his current regiment. - Time Time Spent: 50 to 70 Minutes
[2016-11-05] MEDS: HEPARIN SOD (PORCINE) 5,000 UNIT/ML 1 ML SYRINGE SUBCUT SCH (05:43)
[2016-11-05 06:15] LABS: ABSOLUTE BASOPHILS # (AUTO) 0.1 10^3/uL (0.0-0.2); ABSOLUTE EOSINOPHILS # (AUTO) 0.3 10^3/uL (0.0-0.6); ABSOLUTE LYMPHOCYTES (AUTO) 2.1 10^3/uL (0.5-4.7); ABSOLUTE MONOCYTES (AUTO) 0.7 10^3/uL (0.1-1.4); ABSOLUTE NEUT (AUTO) 3.8 10^3/uL (1.7-8.2); BASOPHILS % (AUTO) 0.9 % (0-2); EOSINOPHILS % (AUTO) 4.6 % (0-6); HEMATOCRIT 39.1 % (37.9-51.0); HEMOGLOBIN 13.1 g/dL (13.5-17.0); HGB HCT DIFFERENCE 0.2; LYMPHOCYTES % (AUTO) 29.7 % (13-45); MEAN CORPUSCULAR HEMOGLOBIN 30.8 pg (27.0-33.4); MEAN CORPUSCULAR HGB CONC 33.4 g/dL (32.0-36.0); MEAN CORPUSCULAR VOLUME 92 fl (80-97); MONOCYTES % (AUTO) 9.7 % (3-13); RED BLOOD COUNT 4.25 10^6/uL (4.35-5.55); RED CELL DISTRIBUTION WIDTH 13.9 % (11.5-14.0); SEGMENTED NEUTROPHILS % (AUTO) 55.1 % (42-78); WHITE BLOOD COUNT 6.9 10^3/uL (4.0-10.5)
[2016-11-05 06:39] LABS: CREATINE KINASE MB 0.86 ng/mL (<4.55); TROPONIN I 0.019 ng/mL
[2016-11-05 06:49] LABS: ANION GAP 10 (5-19); BLOOD UREA NITROGEN 16 mg/dL (7-20); CALCIUM 9.5 mg/dL (8.4-10.2); CARBON DIOXIDE 22 mmol/L (22-30); CHLORIDE 106 mmol/L (98-107); CHOLESTEROL 211.11 mg/dL (0-200); CREATINE KINASE 36 U/L (55-170); CREATININE RESULT 0.87 mg/dL (0.52-1.25); Direct HDL 36 mg/dL (>40); GLUCOSE 95 mg/dL (75-110); POTASSIUM 4.2 mmol/L (3.6-5.0); SODIUM 138.3 mmol/L (137-145); TRIGLYCERIDES 140 mg/dL (<150)
[2016-11-05 07:00] LABS: DIRECT LDL 129 mg/dL (<100)
[2016-11-05] MEDS ORDERED: SODIUM CHLORIDE 5% OPH SOLN 15 ML OP PRN (07:30)
[2016-11-05] MEDS ORDERED: (PENDING PHARMACY ID) (Ondansetron Hcl [Zofran] 4 MG) PO PRN (07:30)
[2016-11-05 08:16] VITALS: BP 146/74
[2016-11-05] MEDS ORDERED: ONDANSETRON 4 MG TAB.RAPDIS PO PRN (09:06)
[2016-11-05] MEDS: TIMOLOL MALEATE 0.5% OPH SOLN 5 ML OU SCH (09:48)
[2016-11-05] MEDS ORDERED: (PENDING PHARMACY ID) (Bromfenac Sodium [Prolensa] 1 DROP) OD SCH (10:00)
[2016-11-05] MEDS ORDERED: POLYETHYLENE GLYCOL 3350 POWDER 17 GM/1 PACKET PO SCH (10:00)
[2016-11-05] MEDS ORDERED: LOSARTAN POTASSIUM 50 MG TABLET PO SCH ×2 (10:00)
[2016-11-05] MEDS ORDERED: CHOLECALCIFEROL (D3) 1,000 UNIT TABLET PO SCH (10:00)
[2016-11-05] MEDS ORDERED: DOCUSATE SODIUM 100 MG CAPSULE PO SCH (10:00)
[2016-11-05] MEDS ORDERED: (PENDING PHARMACY ID) (Losartan/Hydrochlorothiazide [Hyzaar 50-12.5 Tablet] 1 EACH) PO SCH (10:00)
[2016-11-05] MEDS ORDERED: TIMOLOL MALEATE 0.5% OPH SOLN 5 ML OP SCH (10:00)
[2016-11-05] MEDS ORDERED: HYDROCHLOROTHIAZIDE 12.5 MG CAPSULE PO SCH (10:00)
[2016-11-05] MEDS ORDERED: ALLOPURINOL 300 MG TABLET PO SCH (10:00)
[2016-11-05] MEDS ORDERED: ASPIRIN 81 MG TABLET, CHEWABLE PO SCH (10:00)
[2016-11-05] MEDS ORDERED: LANSOPRAZOLE 30 MG TAB.RAP.DR PO SCH (10:00)
--- NOTE | 2016-11-05 12:11 | PDOC DISCHARGE SUMMARY ---
General - Admit/Disc Date/PCP Admission Date/Primary Care Provider: 11/04/16 19:25 GAMAL BRYAN, Discharge Date: 11/05/16 - Discharge Diagnosis (1) Hypertensive urgency Is this a current diagnosis for this admission?: YesSummary: Resolved. Patient had not been taking his Hyzaar because he was urinating so much after taking it. Switched to same dose of plain losartan, patient is agreeable to taking it. (2) TIA (transient ischemic attack) Is this a current diagnosis for this admission?: YesSummary: Symptoms resolved shortly after arrival once blood pressure improved, MRI and CT of the head were negative - Additional Information Resuscitation Status: Do Not Resuscitate Discharge Diet: Regular Discharge Activity: Activity As Tolerated, Balance Activity w/Rest Home Medications: Allopurinol 300 mg PO DAILY 11/04/16 Cholecalciferol (Vitamin D3) [Vitamin D3 1000 Unit Tablet] 1,000 unit PO DAILY 11/04/16 Cyanocobalamin (Vitamin B-12) [Vitamin B12] 1,000 mcg PO DAILY 11/04/16 Docusate Sodium [Colace 100 mg Capsule] 100 mg PO TID 11/04/16 Ergocalciferol (Vitamin D2) [Vitamin D2] 50,000 unit PO [id number] 11/04/16 Ondansetron HCl [Zofran] 4 mg PO PRN PRN 11/04/16 Sodium Chloride 1 drop OP PRN PRN 11/04/16 Timolol Maleate [Timoptic 0.5% Oph Soln 5 ml] 1 drop OP DAILY 11/04/16 Alprazolam [Xanax 0.5 mg Tablet] 0.5 mg PO QHS PRN #30 tab 11/05/16 Losartan Potassium [Cozaar 50 mg Tablet] 50 mg PO DAILY #30 tablet 11/05/16 History of Present Illness Patient complains of: Headache and altered mental status History of Present Illness: MAYA LUCAS is a 89 year old male a past medical history of Depression, GERD , hypertension and insomnia who has been in his usual state of health until approximately 6 hours prior to presentation. Patient had a headache telling his he felt like he was going to , he took a nap and on upon awakening was having difficulty with speech prompting evaluation in the emergency room. He now states he was extremely anxious and considered it an anxiety attack. Patient admits recent change in medication with addition of Xanax for sleep but only keeps him asleep for a couple of hours he denies abrupt discontinuation. He also states he is discontinued Hyzaar as he believes it causes excessive urination and interrupting sleep. In the emergency room he was found to have a blood pressure of 207/107 and not speaking but becomes conversational and blood pressure returns to 140/70 range without intervention. Upon arrival to the emergency room he was also anxious and not talking but returned to baseline. Patient otherwise denies headache blurred vision hallucination nausea vomiting or chest pain. His workup thus far has been unremarkable he is referred to the hospitalist for observation. Hospital Course Hospital Course: Patient was admitted to [facility] on telemetry. He had no further symptoms of altered mental status or headache. Blood pressure was well controlled. MRI and CT of the head were negative. Telemetry showed no arrythmias. Laboratory values were unremarkable. Patient will be discharged home on losartan 50 mg daily. Follow up with Dr Martinez in the next 2 weeks. Physical Exam Vital Signs: Temp Pulse Resp BP Pulse Ox 97.8 F 64 20 146/74 H 96 11/05/16 09:33 11/05/16 09:33 11/05/16 09:33 11/05/16 09:33 11/05/16 09:33 Intake & Output 11/04/16 11/05/16 11/06/16 06:59 06:59 06:59 Intake Total 10 Output Total 375 Balance -365 Weight 82.5 kg General appearance: PRESENT: no acute distress, thin, well-developed, well- nourished Head exam: PRESENT: atraumatic, normocephalic Eye exam: PRESENT: conjunctiva pink, EOMI, PERRLA. ABSENT: scleral icterus Ear exam: PRESENT: normal external ear exam Mouth exam: PRESENT: moist, tongue midline Neck exam: ABSENT: carotid bruit, JVD, lymphadenopathy, thyromegaly Respiratory exam: PRESENT: clear to auscultation yfn. ABSENT: rales, rhonchi, wheezes Cardiovascular exam: PRESENT: RRR. ABSENT: diastolic murmur, rubs, systolic murmur Pulses: PRESENT: normal dorsalis pedis pul Vascular exam: PRESENT: normal capillary refill GI/Abdominal exam: PRESENT: normal bowel sounds, soft. ABSENT: distended, guarding, mass, organolmegaly, rebound, tenderness Rectal exam: PRESENT: deferred Extremities exam: PRESENT: full ROM. ABSENT: calf tenderness, clubbing, pedal edema Neurological exam: PRESENT: alert, awake, oriented to person, oriented to place , oriented to time, oriented to situation, CN II-XII grossly intact. ABSENT: motor sensory deficit Psychiatric exam: PRESENT: appropriate affect, normal mood. ABSENT: homicidal ideation, suicidal ideation Skin exam: PRESENT: other - large echymosis to right lateral arm from venipuncture site Results Laboratory Results: 11/05/16 06:04 11/05/16 06:04 11/04/16 11/05/16 11/05/16 23:41 06:04 06:04 WBC 6.9 RBC 4.25 L Hgb 13.1 L Hct 39.1 MCV 92 MCH 30.8 MCHC 33.4 RDW 13.9 Plt Count 210 Seg Neutrophils % 55.1 Lymphocytes % 29.7 Monocytes % 9.7 Eosinophils % 4.6 Basophils % 0.9 Absolute Neutrophils 3.8 Absolute Lymphocytes 2.1 Absolute Monocytes 0.7 Absolute Eosinophils 0.3 Absolute Basophils 0.1 Sodium 138.3 Potassium 4.2 Chloride 106 Carbon Dioxide 22 Anion Gap 10 BUN 16 Creatinine 0.87 Est GFR ( Amer) > 60 Est GFR (Non-Af Amer) > 60 Glucose 95 Calcium 9.5 Triglycerides 140 Cholesterol 211.11 H LDL Cholesterol Direct 129 H VLDL Cholesterol 28.0 HDL Cholesterol 36 L TSH 6.29 H 11/04/16 11/04/16 11/05/16 23:41 23:41 06:04 Creatine Kinase 30 L CK-MB (CK-2) 0.84 0.86 Troponin I 0.024 0.019 11/05/16 06:04 Creatine Kinase 36 L CK-MB (CK-2) Troponin I Impressions: Chest X-Ray 11/04/16 00:00 IMPRESSION: NO ACUTE RADIOGRAPHIC FINDING IN THE CHEST. Head CT 11/04/16 00:00 IMPRESSION: No acute intracranial findings. CHRONIC CHANGES OF ATROPHY AND MICROVASCULAR ISCHEMIA. Head MRI 11/04/16 00:00 IMPRESSION: Negative for acute or sub-acute infarction. Qualifiers PATEINT BEING DISCHARGED WITH ANY OF THE FOLLOWING DIAGNOSIS?: No Plan Discharge Plan: Home with a friend. Follow up with primary care provider in the next 2 weeks Time Spent: Less than 30 Minutes
--- NOTE | 2016-11-07 09:50 | EKG REPORT ---
SEVERITY:- ABNORMAL ECG - SINUS RHYTHM FIRST DEGREE AV BLOCK LEFT ANTERIOR FASCICULAR BLOCK MINIMAL ST DEPRESSION, ANTERIOR LEADS : Confirmed by: Eros Gage 07-Nov-2016 09:49:57
== END 2016-11-05 11:05 | disposition home or self-care (01) ==
LOC: ER 17:13 → EH 19:25 → INTOOBSV 19:25 → 3W 21:29
PROVIDERS: ADMIT Internal Medicine; ATTEND Internal Medicine
DX: I16.0 Hypertensive urgency (principal); Z91.14 Patient's other noncompliance with medication regimen; G45.9 Transient cerebral ischemic attack, unspecified; Z66 Do not resuscitate; Z79.899 Other long term (current) drug therapy; G47.00 Insomnia, unspecified; F41.8 Other specified anxiety disorders; F32.9 Major depressive disorder, single episode, unspecified; I44.0 Atrioventricular block, first degree; I25.10 Atherosclerotic heart disease of native coronary artery without angina pectoris; Z87.891 Personal history of nicotine dependence; Z90.49 Acquired absence of other specified parts of digestive tract
CPT/HCPCS: 93005; 96376; 99285; 96374; 36415 ×2; 82553 ×2; 80307; 82550 ×2; 83735; 84443; 85025 ×2; 85610; 85730; 80048; 80053; 81001; 84484 ×2; 83036; 80061; 70551; 71010; 70450; 93010; A9270 ×8; J1644; J3490 ×3

== ENCOUNTER → 2016-12-16 | Outpatient (CLI) | payer MEDICARE, OTHER ==
--- NOTE | 2016-12-16 08:41 | RADIOLOGY REPORT (SQ) ---
EXAM DESCRIPTION: CHEST PA/LATERAL COMPLETED DATE/TIME: 12/16/2016 8:33 am REASON FOR STUDY: PRE-OP COMPARISON: 11/04/2016 EXAM PARAMETERS: NUMBER OF VIEWS: two views TECHNIQUE: Digital Frontal and Lateral radiographic views of the chest acquired. RADIATION DOSE: NA LIMITATIONS: none FINDINGS: LUNGS AND PLEURA: No opacities, masses or pneumothorax. No pleural effusion. MEDIASTINUM AND HILAR STRUCTURES: No masses or contour abnormalities. HEART AND VASCULAR STRUCTURES: Heart normal size. No evidence for failure. BONES: No acute findings. There is a mild thoracic scoliosis convex to the right with degenerative c hanges. HARDWARE: None in the chest. OTHER: No other significant finding. IMPRESSION: No significant interval change. No acute findings. Other findings as noted above. TECHNICAL DOCUMENTATION: JOB ID: [id number] [employer]- All Rights Reserved
[2016-12-16 08:50] LABS: ABSOLUTE EOSINOPHILS # (AUTO) 0.3 10^3/uL (0.0-0.6); ABSOLUTE LYMPHOCYTES (AUTO) 1.8 10^3/uL (0.5-4.7); ABSOLUTE MONOCYTES (AUTO) 0.7 10^3/uL (0.1-1.4); ABSOLUTE NEUT (AUTO) 3.6 10^3/uL (1.7-8.2); BASOPHILS % (AUTO) 0.7 % (0-2); EOSINOPHILS % (AUTO) 4.7 % (0-6); HEMATOCRIT 38.8 % (37.9-51.0); HEMOGLOBIN 12.7 g/dL (13.5-17.0); HGB HCT DIFFERENCE -0.7; LYMPHOCYTES % (AUTO) 28.2 % (13-45); MEAN CORPUSCULAR HGB CONC 32.7 g/dL (32.0-36.0); MEAN CORPUSCULAR VOLUME 92 fl (80-97); MONOCYTES % (AUTO) 11.2 % (3-13); RED BLOOD COUNT 4.24 10^6/uL (4.35-5.55); RED CELL DISTRIBUTION WIDTH 14.1 % (11.5-14.0); SEGMENTED NEUTROPHILS % (AUTO) 55.2 % (42-78); WHITE BLOOD COUNT 6.4 10^3/uL (4.0-10.5)
[2016-12-16 08:57] LABS: AMORPHOUS SEDIMENT,URINE TRACE /HPF; APPEARANCE,URINE SLIGHTLY-CLOUDY; BILIRUBIN,URINE NEGATIVE (NEGATIVE); GLUCOSE, URINE NEGATIVE (NEGATIVE); KETONES,URINE NEGATIVE (NEGATIVE); LEUKOCYTE ESTERASE,URINE LARGE (NEGATIVE); NITRITE,URINE NEGATIVE (NEGATIVE); PROTEIN,URINE NEGATIVE (NEGATIVE); URINE SPECIFIC GRAVITY 1.014; UROBILINOGEN,URINE NEGATIVE mg/dL (<2.0)
[2016-12-16 09:16] LABS: ANION GAP 11 (5-19); BLOOD UREA NITROGEN 21 mg/dL (7-20); CALCIUM 9.2 mg/dL (8.4-10.2); CARBON DIOXIDE 23 mmol/L (22-30); CHLORIDE 103 mmol/L (98-107); CREATININE RESULT 0.95 mg/dL (0.52-1.25); GLUCOSE 103 mg/dL (75-110); POTASSIUM 4.4 mmol/L (3.6-5.0); SODIUM 136.6 mmol/L (137-145)
--- NOTE | 2016-12-18 13:50 | EKG REPORT ---
SEVERITY:- ABNORMAL ECG - SINUS RHYTHM FIRST DEGREE AV BLOCK LEFT ANTERIOR FASCICULAR BLOCK : Confirmed by: Shivani Sharp MD 18-Dec-2016 13:49:28
== END ==
LOC: OD 07:54
PROVIDERS: ATTEND Orthopaedic Surgery
DX: Z01.810 Encounter for preprocedural cardiovascular examination (principal); Z01.812 Encounter for preprocedural laboratory examination; Z01.818 Encounter for other preprocedural examination
CPT/HCPCS: 36415; 71020; 80048; 81001; 85025; 93005; 93010

== ENCOUNTER → 2016-12-28 | Outpatient (CLI) | payer MEDICARE, OTHER ==
[~2016-12-28] MED LIST changes: +AMINOPHYLLINE INJ/PF 250 MG/10 ML SDV IV ONE; -EPINEPHRINE INJ 1 MG/10 ML DISP.SYRIN ONE; -FLUMAZENIL INJ 0.5 MG/5 ML VIAL IV ONE; -GLYCOPYRROLATE INJ 0.4 MG/2 ML VIAL ONE; -MIDAZOLAM 2 MG/2 ML INJ ONE; -NALOXONE HCL INJ/PF 0.4 MG/1 ML SDV ONE; -ONDANSETRON HCL INJ/PF 4 MG/2 ML SDV ONE; +REGADENOSON INJ 0.4 MG/5 ML DISP.SYRIN IV ONE
--- NOTE | 2016-12-28 13:04 | DRAGON STRESS TEST REPORT ---
INTRAVENOUS LEXISCAN CARDIOLITE STRESS TEST USING SINGLE PHOTON EMMISION COMPUTERIZED TOMOGRAPHIC. DATE OF PROCEDURE: December 28, 2016 INDICATION : Preop cardiovascular evaluation for orthopedic surgery on lower extremity. Also abnormal electrocardiogram CARDIAC RISK FACTORS: Hypertension. RESTING EKG: Sinus rhythm without any baseline ST-T wave changes. STRESS EKG: No significant changes noted with LexiScan bolus REASON FOR TERMINATION: Protocol. PROCEDURE REPORT: Baseline heart rate 57 beats per minute with blood pressure of 1 88 x 81 patient had no significant complaints. Heart rate at 2 minutes post bolus 78 with a blood pressure of 148/78. 3 minutes post bolus heart rate 68 with blood pressure of 149/74. No significant EKG changes were noted. Patient had no significant complaints during the procedure or postprocedure. Patient injected with Aminophyllin 75 mg at 3 minutes or later after Lexiscan bolus. CONCLUSIONS: Normal EKG and hemodynamic response to IV LexiScan. NUCLEAR DATA: At rest the patient was given 12.88 millicuries of technetium 99 sestamibi injected intravenously. As per protocol rest gated SPECT images were obtained. Subsequently the patient was given intravenous LexiScan at a dose of 0.4 mg in 5 mL intravenously, followed by flush with normal saline. Subsequently the stress dose of 37.0 millicuries of technetium 99 sestamibi was injected intravenously. As per protocol stress gated images were obtained. NUCLEAR INTERPRETATION: Both raw and processed data were used for interpretation. Visual, qualitative, computer-generated quantitative data was used. There was good myocardial uptake of technetium compound. Motion artifact and soft tissue attenuations were noted. Increased visceral uptake was noted. No definitive areas of transient perfusion defect noted. No definitive areas of fixed perfusion defect or scars noted. EKG gated imaging showed LV EF at 59 %, rest and stress gated EF similar visually. T. I D. ratio was 1.18. Lung heart ratio noted to be within normal limits 0.33]. No significant extracardiac and abnormal radiotracer activities were noted. RV free wall uptake was noted to be WNL. IMPRESSION: Also refer to comments under nuclear interpretation. Also test results needs to be interpreted in the context of pretest probability. 1. There is no definitive scintigraphic evidence of LexiScan induced myocardial ischemia. 2. There is no definitive scintigraphic evidence of myocardial infarction/scar. 3. EKG gated imaging shows left ejection fraction of approximately 59 %. 4. Clinical correlation requested as occasionally single vessel disease or balanced ischemia could be missed. In approximately 10% of the cases Lexiscan may not cause adequate vasodilatory stress. RECOMMENDATIONS: Aggressive risk factor modification, medical therapy. Clinical correlation with echocardiogram derived ejection fraction. Inability to exercise by itself can lead to increased cardiovascular event risks. Consider cardiology consultation and or follow-up if clinically indicated. I AM AVAILABLE FOR CARDIOLOGY CONSULTATION AND FOLLOWUP IF REQUESTED BY PMD Eros Gage M.D., [facility]ENTER[facility] Pullman [employer] seaweed harvester, Board certified in cardiovascular diseases, Nuclear cardiology, Echocardiography Cardiac CT and cardiac MRI Ph. [phone] [facility]
== END ==
LOC: RAD 07:30
PROVIDERS: ATTEND Internal Medicine
DX: Z01.810 Encounter for preprocedural cardiovascular examination (principal); R94.31 Abnormal electrocardiogram [ECG] [EKG]; I10 Essential (primary) hypertension
CPT/HCPCS: 93017; 78452; A9500; J2785; J0280; Q9969

== ENCOUNTER → 2017-01-04 | Outpatient (CLI) | payer MEDICARE, OTHER ==
[2017-01-04 15:44] LABS: ABSOLUTE EOSINOPHILS # (AUTO) 0.3 10^3/uL (0.0-0.6); ABSOLUTE LYMPHOCYTES (AUTO) 1.8 10^3/uL (0.5-4.7); ABSOLUTE MONOCYTES (AUTO) 0.6 10^3/uL (0.1-1.4); BASOPHILS % (AUTO) 0.8 % (0-2); EOSINOPHILS % (AUTO) 5.2 % (0-6); HEMOGLOBIN 14.3 g/dL (13.5-17.0); HGB HCT DIFFERENCE -0.1; LYMPHOCYTES % (AUTO) 31.3 % (13-45); MEAN CORPUSCULAR HEMOGLOBIN 30.8 pg (27.0-33.4); MEAN CORPUSCULAR HGB CONC 33.3 g/dL (32.0-36.0); MEAN CORPUSCULAR VOLUME 92 fl (80-97); MONOCYTES % (AUTO) 10.6 % (3-13); RED BLOOD COUNT 4.65 10^6/uL (4.35-5.55); RED CELL DISTRIBUTION WIDTH 14.3 % (11.5-14.0); SEGMENTED NEUTROPHILS % (AUTO) 52.1 % (42-78); WHITE BLOOD COUNT 5.8 10^3/uL (4.0-10.5)
[2017-01-04 15:59] LABS: ALANINE AMINOTRANSFERASE 32 U/L (21-72); ALBUMIN 4.5 g/dL (3.5-5.0); ALKALINE PHOSPHATASE 83 U/L (38-126); AMYLASE 66 U/L (30-110); ANION GAP 11 (5-19); ASPARTATE AMINO TRANSFERASE 21 U/L (17-59); BILIRUBIN,DIRECT 0.3 mg/dL (0.0-0.4); BILIRUBIN,TOTAL 0.5 mg/dL (0.2-1.3); BLOOD UREA NITROGEN 17 mg/dL (7-20); CALCIUM 9.6 mg/dL (8.4-10.2); CARBON DIOXIDE 26 mmol/L (22-30); CHLORIDE 101 mmol/L (98-107); CREATININE RESULT 0.91 mg/dL (0.52-1.25); GLUCOSE 109 mg/dL (75-110); LIPASE 148.5 U/L (23-300); POTASSIUM 4.1 mmol/L (3.6-5.0); SODIUM 138.1 mmol/L (137-145); TOTAL PROTEIN 7.6 g/dL (6.3-8.2)
[2017-01-04 16:29] LABS: CARCINOEMBRYONIC ANTIGEN 0.8 ng/mL (<3.0)
== END ==
LOC: OD 14:49
PROVIDERS: ATTEND Specialist
DX: R10.9 Unspecified abdominal pain (principal); R97.0 Elevated carcinoembryonic antigen [CEA]; C25.0 Malignant neoplasm of head of pancreas; R63.4 Abnormal weight loss
CPT/HCPCS: 36415; 80053; 82150; 82378; 83690; 85025; 86301